=== PATIENT | female | born 1980 | race Two or more races ===

== ENCOUNTER 2020-05-04 15:45 | Outpatient (REF) | payer BC, SELFPAY ==
[2020-05-09 21:21] LABS: HPV mRNA E6/E7 rflx Not Detected (Not Detected)
== END 2020-05-04 15:46 | disposition home or self-care (01) ==
LOC: HO.LAB 15:45
PROVIDERS: Visit Provider Obstetrics & Gynecology
DX: Z01.419 Encounter for gynecological examination (general) (routine) without abnormal findings (principal)
CPT/HCPCS: 87624; 87625; 88142

== ENCOUNTER → 2020-05-08 07:58 | Outpatient (REF) | payer BC, OTHER, SELFPAY ==
--- NOTE | 2020-05-08 | NM_ITS ---
Exercise Myocardial perfusion study Indication: Abnormal treadmill stress test evaluate for myocardial ischemia Technique: The patient was brought in for an exercise perfusion study on 05/08/2020. Patient performed exercise as per Marco protocol and was injected 25 mCi of sestamibi was given intravenously one target HR was achieved. Images were obtained using the SPECT gamma camera interlaced with the gating device. Images were obtained in supine position. Resting perfusion study was performed on 05/09/2020. Patient was administered 25 mCi of sestamibi intravenously at rest. Images were then obtained in supine position. Images obtained with and without CT attenuation. Total DLP 72 MGY-CM. Images were processed with the software and compared side to side in short axis, horizontal long axis and vertical long axis views. Findings: The stress perfusion study showed non attenuated images show mildly reduced uptake in the anterior wall of the LV myocardium. Remainder of the LV myocardium is normally perfused. Attenuation corrected images show minimal thinning of the distal anterior wall of the LV myocardium. The gated study shows normal LV systolic function with calculated LVEF of greater than 70 %. LV cavity is normal in size. The gated study shows normal systolic wall thickening and contraction of all segments. There is no transient ischemic dilation. Resting study was suboptimal due to intense subdiaphragmatic uptake especially non attenuated images but shows normal uptake on non attenuated images.]. Attenuation corrected images show diffuse reduced uptake in the entire myocardium. Gating at rest reveals normal systolic wall motion with ejection fraction at 67%. The findings are consistent with likely normal myocardial. NM/NM gretchen perf SPECT rest & str Impression: 1. Likely normal myocardial perfusion 2. Gated LVEF is greater than 70% 3. Transient ischemic dilatation not present Stress EKG is equivocal for ischemia
--- NOTE | 2020-05-08 08:05 | CA_ITS ---
Acquisition Time: 2020-05-08 09:18:18 Total Exercise Time: 00:06:40 Test Indications: Abnormal ECG Medications: LISINOPRIL MAGNESIUM NAPROXEN CYCLOBENZAPRINE Protocol: RUI Max HR: 166 BPM 93% of Pred: 178 BPM Max BP: 156/070 mmHG Max Work Load: 8.0 METS Exercise stress nuclear using Rui protocol. Total of 6 min 40 sec. METS 8, THR up to 93 %. Pt tolerated well, denies any anginal sx. EKG without arrhythmias. T wave inversions 2 min 16 sec into recovery in leads 2,3 and in aVF anf V3-V6, however pt is asymptomatic. Nuclear images to follow. Normotensibe response to exercise. Test reviewed with Dr. Kim Referred By: Beverley Silveira Overread By: Nesha Camp
== END ==
LOC: HO.CARD 07:58
PROVIDERS: PCP Family Medicine; Visit Provider Physician Assistant Medical
DX: R94.39 Abnormal result of other cardiovascular function study (principal)
CPT/HCPCS: 78452; 93017; A9500

== ENCOUNTER 2020-06-27 16:46 | Outpatient (REF) | payer BC, SELFPAY ==
--- NOTE | 2020-06-27 | XR_ITS ---
EXAMINATION: XR KNEE, RIGHT CLINICAL INFORMATION: Pain COMPARISON: None TECHNIQUE: Four views of the right knee. FINDINGS: Bone alignment is normal. No fracture or dislocation is seen. There is a sclerotic density in the medial proximal tibial metaphysis measuring approximately 5 x 10 mm. This is nonspecific but may represent a bone island. Joint spaces are normal. There is no joint effusion. XR/XR knee RT 4V IMPRESSION: 5 x 10 mm sclerotic density in the medial tibial metaphysis. This is a nonspecific finding but may represent a benign bone island. Otherwise unremarkable exam.
== END 2020-06-27 16:47 | disposition home or self-care (01) ==
LOC: HO.XRAY 16:46
PROVIDERS: PCP Family Medicine; Visit Provider Nurse Practitioner Family
DX: M25.561 Pain in right knee (principal)
CPT/HCPCS: 73564

== ENCOUNTER 2020-11-09 08:38 | Outpatient (REF) | payer BC, SELFPAY ==
--- NOTE | ~2020-11-09 | MM_ITS ---
EXAMINATION: MM SCREENING DIGITAL BREAST TOMOSYNTHESIS, BILATERAL CLINICAL INFORMATION: Screening. Asymptomatic. Age 40. No prior breast imaging. No known family history of breast cancer. The lifetime risk of breast cancer based on the Tyrer-Cuzick Model is 9%. COMPARISON: None (current study represents initial baseline exam). TECHNIQUE: Digital breast tomosynthesis is performed in both the craniocaudal and mediolateral oblique views along with computer-aided detection (CAD). Synthesized 2D images are generated from the tomosynthesis. FINDINGS: There are scattered areas of fibroglandular density (ACR BI-RADS breast composition Category b). There are no significant masses, abnormal calcifications, or other abnormalities. The axilla and skin contours are unremarkable. MM/MM tomosynthesis screening BI IMPRESSION: No mammographic evidence of malignancy. ASSESSMENT: BI-RADS 1: Negative RECOMMENDATION: Routine annual mammography screening. This patient's information was entered into a reminder system with a target due date for their next mammogram.
== END 2020-11-09 08:39 | disposition home or self-care (01) ==
LOC: HO.MAMMO 08:38
PROVIDERS: Visit Provider Obstetrics & Gynecology
DX: Z12.31 Encounter for screening mammogram for malignant neoplasm of breast (principal)
CPT/HCPCS: 77063; 77067

== ENCOUNTER 2021-09-25 09:10 | Outpatient (REF) | payer BC, SELFPAY ==
[2021-09-27 17:01] LABS: HPV mRNA E6/E7 rflx Not Detected (Not Detected)
== END 2021-09-25 09:11 | disposition home or self-care (01) ==
LOC: HO.LAB 09:10
PROVIDERS: PCP Family Medicine; Visit Provider Obstetrics & Gynecology
DX: Z01.419 Encounter for gynecological examination (general) (routine) without abnormal findings (principal); Z11.51 Encounter for screening for human papillomavirus (HPV)
CPT/HCPCS: 87624; 88142

== ENCOUNTER 2021-11-12 16:03 | Outpatient (REF) | payer BC, SELFPAY ==
--- NOTE | ~2021-11-12 | MM_ITS ---
EXAMINATION: MM SCREENING DIGITAL BREAST TOMOSYNTHESIS, BILATERAL CLINICAL INFORMATION: Screening. Asymptomatic. The lifetime risk of breast cancer based on the Tyrer-Cuzick Model is 8%. COMPARISON: Mammography: 11/09/2020 (baseline) TECHNIQUE: Digital breast tomosynthesis is performed in both the craniocaudal and mediolateral oblique views along with computer-aided detection (CAD). Synthesized 2D images are generated from the tomosynthesis. FINDINGS: There are scattered areas of fibroglandular density (ACR BI-RADS breast composition Category b). Parenchymal pattern is similar to prior baseline exam. Minor asymmetries are stable. There are no significant masses, abnormal calcifications, or other abnormalities. The axilla and skin contours are unremarkable. MM/MM tomosynthesis screening BI IMPRESSION: No mammographic evidence of malignancy. ASSESSMENT: BI-RADS 1: Negative RECOMMENDATION: Routine annual mammography screening. This patient's information was entered into a reminder system with a target due date for their next mammogram.
== END 2021-11-12 16:04 | disposition home or self-care (01) ==
LOC: HO.MAMMO 16:03
PROVIDERS: PCP Family Medicine; Visit Provider Obstetrics & Gynecology
DX: Z12.31 Encounter for screening mammogram for malignant neoplasm of breast (principal)
CPT/HCPCS: 77063; 77067

== ENCOUNTER 2022-07-24 00:31 | Emergency (ER) | payer OTHER, SELFPAY ==
[2022-07-24 00:33] VITALS: BP 146/94; PULSE 83; RESP 18; TEMP 36.2; O2SAT 99; BMI 28.7
--- NOTE | 2022-07-24 00:45 | ED.FEMALEGU ---
HPI - Female Genitourinary General Chief complaint: Urogenital-Female Stated complaint: UTI Time Seen by Provider: 07/24/22 00:41 Source: patient Mode of arrival: ambulatory Limitations: no limitations History of Present Illness HPI Narrative: Patient is a healthy complaining of dysuria frequency burning sensation for last 2 days with back pain no nausea no vomiting no fever or chills no abdominal pain slight suprapubic discomfort no vaginal discharge Related Data Home Medications Medication Instructions Recorded Confirmed lisinopril 10 mg tablet 10 mg PO DAILY 05/04/20 magnesium 200 mg tablet 400 mg PO DAILY 05/04/20 Previous Rx's Medication Instructions Recorded cefuroxime axetil 250 mg tablet 250 mg PO BID 7 days #14 tabs 07/24/22 phenazopyridine 200 mg tablet 200 mg PO TID 2 days #6 tabs 07/24/22 (Pyridium) Allergies Allergy/AdvReac Type Severity Reaction Status Date / Time No Known Allergies Allergy Verified 09/25/21 09:43 [No Known Allergies*] Review of Systems Review of Systems: Yes all other systems are reviewed and are negative FOR[facility]LY [facility] Past Medical History Medical History Dysplasia of cervix, low grade (CAMPBELL 1) HTN (hypertension) Social History Social History Alcohol intake: never Advance Directives: No Advance Directives Information Provided: No Sexual orientation: Straight/Heterosexual Gender identity: Female Physical Exam Vital Signs: Vital Signs: Last Vital Signs Temp 97.2 F 07/24/22 00:33 Pulse 83 07/24/22 00:33 Resp 18 07/24/22 00:33 BP 146/94 H 07/24/22 00:33 Pulse Ox 99 07/24/22 00:33 O2 Del Method 07/24/22 00:33 BMI result Body Mass Index 28.7 Appearance: Alert. Oriented X3. No acute distress. ENT: Pharynx normal. Oral Mucosa moist Neck: Normal inspection. Neck supple. CVS: Normal heart rate and rhythm. Pulses normal. Respiratory: No respiratory distress. Equal air entry bilateral, no wheezing/rales/rhonchi Abdomen: Soft and nontender. Bowel sounds are present, no mass palpable, no CVA tenderness Skin: Skin warm and dry. Normal skin color. Normal skin turgor. Extremities: No lower extremity edema. No calf tenderness Neuro: Oriented X 3. No motor deficit. Medications Administered Discontinued Medications Generic Name Dose Route Start Last Admin Trade Name Melvina PRN Reason Stop Dose Admin Cefuroxime Axetil 250 mg 07/24/22 00:50 07/24/22 01:00 Cefuroxime Axetil 250 Mg Tablet PO 07/24/22 00:51 250 mg ONCE ONE Administration Phenazopyridine HCl 200 mg 07/24/22 00:50 07/24/22 01:00 Phenazopyridine Hcl 200 Mg Tablet PO 07/24/22 00:51 200 mg ONCE ONE Administration Tramadol HCl 50 mg 07/24/22 00:50 07/24/22 01:00 Tramadol Hcl 50 Mg Tablet PO 07/24/22 00:51 50 mg ONCE ONE Administration Medical Decision Making Medical Decision Making [facility] [place] Narrative: Patient with uncomplicated UTI will treat outpatient antibiotic treatment Ceftin and Pyridium Lab Data [facility] [place] Lab Attestation statement: I reviewed the patient's lab results. Labs: Lab Results 07/24/22 Range/Units 00:50 Urine Color Yellow Urine Appearance Clear Urine pH 6.0 (5.0-9.0) Ur Specific [place] <= 1.005 (1.005-1.025) Urine Protein Negative (Neg-Trace) mg/dL Urine Glucose (UA) Negative (Negative) mg/dL Urine Ketones Negative (Negative) mg/dL Urine Blood Moderate (2+) H (Negative) Urine Nitrite Negative (Negative) Ur Leukocyte Esterase Large (3+) H (Negative) Urine RBC 0-2 (0-2) /HPF Urine WBC 21-50 (0-5) /HPF Ur Squamous Epith Cells 0-2 (0-2) /HPF Urine Bacteria None Seen (None Seen) Hyaline Casts 0-2 (0-2) /LPF Discharge Plan Discharge Clinical Impression: UTI (urinary tract infection) Patient Disposition: Home, Self-Care Instructions: Urinary Tract Infection in Women (ED) Additional Instructions: Drink plenty of fluids Antibiotics as prescribed Follow-up with your PCP if not better Report to the ER if increased flank pain/fever/vomiting Prescriptions: New cefuroxime axetil 250 mg tablet 250 mg PO BID 7 Days Qty: 14 0RF phenazopyridine [Pyridium] 200 mg tablet 200 mg PO TID 2 Days Qty: 6 0RF No Action lisinopril 10 mg tablet 10 mg PO DAILY magnesium 200 mg tablet 400 mg PO DAILY Stand Alone Forms: Work/School Release Interventions: ED Discharge Assessment Last Done: 07/24/22 01:39 Discharge Date/Time: 07/24/22 01:39
[2022-07-24] MEDS: traMADoL HCL 50 MG TABLET PO (01:00)
[2022-07-24] MEDS: Phenazopyridine HCL 200 MG TABLET PO (01:00)
[2022-07-24 01:04] LABS: Appearance Urine Clear; Color Urine Yellow; Glucose Urine UA Negative (Negative); Leukocyte Esterase Urine Large (3+) (Negative); Nitrite Urine Negative (Negative); Specific Gravity - Urine <= 1.005 (1.005-1.025); UMIC TRIGGER UACC YES; Urine Blood Moderate (2+) (Negative); Urine Ketones Negative (Negative); Urine Protein Negative (Neg-Trace)
[2022-07-24 01:11] LABS: Bacteria Urine None Seen (None Seen); Hyaline Casts Urine 0-2 /LPF (0-2); RBC Urine 0-2 /HPF (0-2); Squamous Epithelial Cell Urine 0-2 /HPF (0-2); UACC Culture Trigger YES; WBC Urine 21-50 /HPF (0-5)
== END 2022-07-24 01:39 | disposition home or self-care (01) ==
PROVIDERS: Emergency Provider Internal Medicine
DX: N39.0 Urinary tract infection, site not specified (principal); Z79.899 Other long term (current) drug therapy
CPT/HCPCS: 81001; 81003; 87086; 87088; 87186; 99283; 99284

== ENCOUNTER 2022-08-23 12:15 | Outpatient (REF) | payer OTHER, SELFPAY ==
[2022-08-23 13:41] LABS: Hematocrit 38.8 % (37.0-47.0); Mean Corpuscular HGB Conc 33.5 g/dl (31.0-35.0); Mean Corpuscular Hemoglobin 30.3 pg (27.0-33.0); Mean Corpuscular Volume 90.4 fL (80.0-98.0); Mean Platelet Volume 9.7 fL (9.4-12.3); Platelet Count 311 X10*3/uL (160-400); Red Blood Count 4.29 X10*6/uL (4.20-5.50); Red Cell Distribution Width 12.2 % (11.0-16.0); White Blood Count 5.7 X10*3/uL (4.8-10.8)
[2022-08-23 14:16] LABS: Alanine Aminotransferase 14 U/L (0-31); Albumin Level 3.9 g/dL (3.5-5.0); Alkaline Phosphatase 43 U/L (39-117); Anion Gap 16 (12-20); Aspartate Amino Transferase 12 U/L (5-31); Bilirubin Total 0.6 mg/dL (0.0-1.0); Blood Urea Nitrogen 13 mg/dL (9-16); Calcium 9.1 mg/dL (8.4-10.2); Carbon Dioxide 22 mmol/L (22-29); Chloride 107 mmol/L (96-108); Cholesterol 209 mg/dL; Estimated Glomerular Filt Rate > 60; Glucose Fasting 92 mg/dL (60-99); HDL Cholesterol 42 mg/dL; LDL Cholesterol Calculated 148 mg/dl; Potassium 4.5 mmol/L (3.3-5.1); Sodium 140 mmol/L (135-145); Total Protein 6.6 g/dL (6.5-8.0); Triglycerides 97 mg/dL
[2022-08-23 14:32] LABS: TSH reflex Free T4 0.81 uIU/mL (0.32-4.0); Vitamin D 25-OH Total 24.3 ng/mL (>30)
== END 2022-08-23 12:16 | disposition home or self-care (01) ==
LOC: HO.LAB 12:15
PROVIDERS: PCP Nurse Practitioner Family; Visit Provider Nurse Practitioner Family
DX: Z00.00 Encounter for general adult medical examination without abnormal findings (principal); E55.9 Vitamin D deficiency, unspecified
CPT/HCPCS: 36415; 80053; 80061; 82306; 83735; 84443; 85027

== ENCOUNTER → 2022-10-23 11:53 | Outpatient (BNVA) | payer OTHER, SELFPAY | PROVIDERS: PCP Nurse Practitioner Family; Visit Provider Obstetrics & Gynecology | DX: Z13.89 Encounter for screening for other disorder (principal) ==

== ENCOUNTER 2022-11-19 09:50 | Outpatient (REF) | payer OTHER, SELFPAY ==
--- NOTE | ~2022-11-19 | MM_ITS ---
EXAMINATION: MM SCREENING DIGITAL BREAST TOMOSYNTHESIS, BILATERAL CLINICAL INFORMATION: Screening. Asymptomatic. The lifetime risk of breast cancer based on the Tyrer-Cuzick Model is 8%. COMPARISON: Mammography: 11/12/2021, 11/09/2020 (baseline) TECHNIQUE: Digital breast tomosynthesis is performed in both the craniocaudal and mediolateral oblique views along with computer-aided detection (CAD). Synthesized 2D images are generated from the tomosynthesis. FINDINGS: There are scattered areas of fibroglandular density (ACR BI-RADS breast composition Category b). There are no significant masses, abnormal calcifications, or other abnormalities. No architectural abnormality or developing density or significant change from prior studies. The axilla and skin contours are unremarkable. No significant changes from prior exams. MM/MM tomosynthesis screening BI IMPRESSION: No mammographic evidence of malignancy. ASSESSMENT: BI-RADS 1: Negative RECOMMENDATION: Routine annual mammography screening. This patient's information was entered into a reminder system with a target due date for their next mammogram.
== END 2022-11-19 09:51 | disposition home or self-care (01) ==
LOC: HO.MAMMO 09:50
PROVIDERS: PCP Nurse Practitioner Family; Referring Provider Obstetrics & Gynecology; Visit Provider Nurse Practitioner Family
DX: Z12.31 Encounter for screening mammogram for malignant neoplasm of breast (principal)
CPT/HCPCS: 77063; 77067

== ENCOUNTER 2023-06-05 15:07 | Outpatient (AMB) | payer OTHER, SELFPAY ==
--- NOTE | 2023-06-05 15:15 | A.OFFPC_ITS ---
Vital Signs 06/05/23 15:16 Height 5 ft 6 in Weight 176 lb BMI 28.4 BP 130/76 Blood Pressure Location Rt brachial Position Sitting Respiration 13 Pulse 87 Pulse Source Pulse Oximeter Temp 97.7 F Temp Source Temporal Artery Scan Pulse Oximetry (%) 99 Oxygen Delivery Method Room Air Intake Visit Reasons: follow up bp med Intake Note: Patient states that insurance was giving her a hard time to get her bp meds due to it being a 30 day supply and not a 90 day supply, patient would like a refill on the lisinopril but with a 90 day supply. Patient would like to quickly discuss pain in her right leg if there is time. 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 She states that her former PCP did xray and MRI at the time without acute findings. She reports intermittent pain in the right knee which has recently been more frequent and interrupts her sleep at night. No tingling, numbness, or loss of sensation. No acute symptoms at this time. She has not been taking any medication for her symptoms. [facility] Medical History (Updated 06/05/23 @ 15:45 by Ange Barber CNP) Dysplasia of cervix, low grade (CAMPBELL 1) HTN (hypertension) Surgical History (Updated 06/05/23 @ 15:26 by Carmencita Roberson MA) No pertinent past surgical history Family History Mother HTN (hypertension) Maternal Grandfather Colon cancer Paternal Aunt Lung cancer Social History Household Members: Spouse Household Members Other:: son Housing: House Alcohol intake: never Patient Tobacco Use Status: Never used Tobacco e-Cigarette/Vaping Use: Never Used service: No Current occupational status: employed 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 Anderson Elizondo, Marjorie Palacio, Harish Rueda and colleagues, with an educational kristin from [employer]. Review of Systems Const Details: Const Denies chills, Denies fatigue, Denies fever(s), Denies headache(s) and Denies weakness ENT Denies dizziness and Denies headache(s) Card Denies chest pain, Denies lightheadedness, Denies dyspnea and Denies other (Palpitations) Resp Denies cough, Denies dyspnea, Denies wheezing and Denies other ( shortness of breath) GI Denies abdominal pain, Denies melena, Denies hematochezia, Denies change in bowel habits, Denies dyspepsia and Denies nausea Denies hematuria and Denies dysuria Musc Reports as per HPI Skin/Breast Denies rash, Denies unusual bruising and Denies wounds Neuro Denies abnormal gait, Denies dizziness, Denies headache(s), Denies memory loss, Denies numbness, Denies Sensory deficit (Neuro), Denies tingling and Denies weakness Psych Denies anxiety, Denies depression, Denies memory loss Endo Denies cold intolerance, Denies fatigue, Denies heat intolerance, Denies polydipsia and Denies polyuria Aller/Immun Denies wheezing Physical exam (Primary Care) Vital Signs: Last Vital Signs Temp 97.7 F 06/05/23 15:16 Pulse 87 06/05/23 15:16 Resp 13 06/05/23 15:16 BP 130/76 06/05/23 15:16 Pulse Ox 99 06/05/23 15:16 Oxygen Delivery Method Room Air 06/05/23 15:16 BMI result Body Mass Index 28.4 Tobacco/Smoking Status: Tobacco use Status Tobacco use date assessed 08/12/22 10/23/22 12:29 Patient Tobacco Use Status Never used Tobacco 10/23/22 12:29 e-Cigarette/Vaping Use Never Used 10/23/22 12:29 Thrive Assessment: Date of Thrive Assessment Date Thrive assessed 08/12/22 10/23/22 12:29 Const Other: General: no acute distress and well developed Nutritional Appearance: well nourished Orientation/consciousness: patient oriented x3 HENMT Head: Yes normocephalic and Yes atraumatic Eyes General: appearance normal, both eyes and all related structures Pupils: Equal, round and reactive pupils present EOM: EOMs intact bilaterally Resp Effort & Inspection: normal respiratory effort Auscultation: clear to auscultation bilaterally Cardio Rate: regular rate Rhythm: regular rhythm Heart sounds: S1 normal heart sound present, S2 normal heart sound present, no gallops, no murmurs and no rubs GI Palpation (GI): No Abdominal aortic bruit present, Soft to palpation, nontender, No hepatosplenomegaly present and No Rebound tenderness present Auscultation: normal bowel sounds General: Yes no CVA tenderness Back/Spine/Pelvis Back: no CVA tenderness Cervical Spine: cervical ROM normal and No Cervical spine tenderness Thoracic/Lumbar Spine: thoraco-lumbar ROM normal, No pain with thoraco-lumbar ROM, No thoracic spinal tenderness and No lumbar spinal tenderness Extrem General: Yes normal to inspection, No edema and No calf tenderness Normal ROM of the right knee, no edema, erythema, or overt signs of trauma Skin General: warm and dry. Normal skin color. Normal skin turgor Neuro General: patient oriented x3, gait normal and no focal neuro deficit Cranial nerves: Yes Equal, round and reactive pupils present Cognition (Neuro): normal cognition Gait exam (Neuro): Normal gait present Sensory Exam: No Sensory deficit (Neuro) Psych Appearance: grossly normal Affect: normal affect Attitude: cooperative Thought process: Normal thought process present Assessment and Plan Assessment & Plan (1) Essential (primary) hypertension: Code(s): I10 - Essential (primary) hypertension Plan: Blood pressure is 130/76, within goal of less than 140/90 Continue to take lisinopril as prescribed Low-sodium diet encouraged Will continue to monitor Follow-up in 2 months for an extended physical exam Return sooner with symptoms or concerns Verbalized understanding and agreed with treatment (2) Chronic pain of right knee: Code(s): M25.561 - Pain in right knee; G89.29 - Other chronic pain Plan: Reports chronic intermittent right knee pain from a nontraumatic injury 2 years ago Normal ROM of the right knee, no edema, erythema, or overt signs of trauma Naproxen ordered. Take as prescribed Warm/cold compresses encouraged Referred to physical therapy Advised to request MRI report from previous PCP sent to us Follow-up with worsening or new symptoms Verbalized understanding and agreed with treatment plan Orders: Orders PT Evaluation and Treatment Today G89.29 - Other chronic pain, M25.561 - Pain in right knee Medications: New naproxen 500 mg PO BID PRN 60 tabs 0RF pain Changed From lisinopril 10 mg PO DAILY 30 days 30 tabs 0RF To lisinopril 10 mg PO DAILY 90 days 90 tabs 1RF Coding Level of Care Code Est Pt Level 3 (92830) Diagnoses Essential (primary) hypertension I10 Chronic pain of right knee M25.561; G89.29
[2023-06-05 15:16] VITALS: BP 130/76; PULSE 87; RESP 13; TEMP 36.5; O2SAT 99; BMI 28.4
== END 2023-06-05 16:02 | disposition home or self-care (01) ==
PROVIDERS: PCP Nurse Practitioner Family; Visit Provider Nurse Practitioner Family
DX: I10 Essential (primary) hypertension (principal); M25.561 Pain in right knee; G89.29 Other chronic pain
CPT/HCPCS: 99213

== ENCOUNTER 2023-12-02 15:19 | Outpatient (AMB) | payer OTHER, SELFPAY ==
--- NOTE | 2023-12-02 15:23 | A.OFFVIS_ITS ---
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 Complaining of an episode of blood per stool 2 months Last Pap/HPV was negative in 10/12 Last Mammogram was BI-RADS 1 in 11/12 No previous screening colonoscopy PFSH Medical History Dysplasia of cervix, low grade (CAMPBELL 1) HTN (hypertension) Surgical History No pertinent past surgical history Family History Mother HTN (hypertension) Maternal Grandfather Colon cancer Paternal Aunt Lung cancer Social History Household Members: Spouse Household Members Other:: son Housing: House Alcohol intake: never Patient Tobacco Use Status: Never used Tobacco e-Cigarette/Vaping Use: Never Used service: No Current occupational status: employed 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 Sexual orientation: Straight/Heterosexual Gender identity: Female Cognitive needs: No Hearing needs: No Vision needs: No Female Reproductive History Menstrual Age of Menarche: 10 Duration of menses: 6-7 days Date of last menstrual period: 11/15/23 Total pregnancies: 1 Full term: 1 Number of Living Children: 1 Date of last pap smear: 09/26/21 Date of Mammogram: 11/19/22 Review of Systems Const All systems reviewed & are unremarkable except as noted in HPI and below Card Reports as per HPI Resp Reports as per HPI GI Reports as per HPI and Reports no additional complaints Reports as per HPI Physical Exam Vital Signs: Last Vital Signs BP 120/82 12/02/23 15:24 BMI result Body Mass Index 28.6 Const General: cooperative, healthy appearing and comfortable Chest Chest palpation & inspection: normal inspection of the chest and normal palpation of entire chest wall Breast/axilla inspection: normal inspection of the breasts and normal inspection of the axillae Breast/axilla palpation: normal palpation of the breasts, normal palpation of the axillae and no axillary lymphadenopathy Resp Effort & Inspection: normal respiratory effort Auscultation: clear to auscultation bilaterally Percussion: percussion normal Cardio Palpation: normal PMI Rate: regular rate Rhythm: regular rhythm Heart sounds: no murmurs and no rubs Peripheral pulses: Peripheral pulses 2+ throughout GI Inspection: Yes normal to inspection Palpation (GI): Soft to palpation, nontender, no guarding, not rigid and No hepatosplenomegaly present Percussion: Yes normal to percussion Auscultation: normal bowel sounds Rectal Exam - Female: deferred General: Yes bladder normal to palpation External Female Exam: No lesion Speculum Exam - Vagina: normal appearance of the vagina, normal palpation, normal vaginal discharge and not erythematous Speculum Exam - Cervix: normal appearance of the cervix and normal palpation Bimanual exam- vagina & uterus: normal bimanual exam, normal palpation, uterine size normal, bladder normal to palpation, consistency normal and normal palpation Bimanual Exam- Adnexa, other: normal adnexae, no masses and no tenderness Assessment & Plan Assessment & Plan (1) Well woman exam: Comment: History of CAMPBELL 1 persistent 2018 status post LEEP followed by negative co testing in 2018 and 2019 and negative co testing in 10/12 Code(s): Z01.419 - Encounter for gynecological examination (general) (routine) without abnormal findings Category: Medical Plan: Cotesting not indicated this year. Mammogram ordered. The patient was refer to GI for colonoscopy Counseled the patient about the recommended dietary allowance of 1000 mg of Calcium & 600 IU of vitamin D. The patient was instructed to perform monthly self-breast exams and to schedule an annual exam in a year; All questions answered and the patient verbalized understanding. Instructed the patient to schedule annual exam in a year (2) Hematochezia: Code(s): K92.1 - Melena Category: Medical Plan: Will refer to GI for colonoscopy Instructed the patient to call our office back in case a referral appointment is not scheduled, missed or canceled so that we will assist on rescheduling another appointment, the patient verbalized understanding agreed with the plan. Orders: Orders MM tomosynthesis screening BI Today Z12.31 - Encounter for screening mammogram for malignant neoplasm of breast Referrals Gastroenterology Referral K92.1 - Melena Coding Level of Care Code Est Pt Prev Care 40-64y(82050) Diagnoses Well woman exam Z01.419 Hematochezia K92.1
[2023-12-02 15:24] VITALS: BP 120/82; BMI 28.6
== END 2023-12-02 15:46 | disposition home or self-care (01) ==
LOC: HO.HWS 15:19
PROVIDERS: PCP Nurse Practitioner Family; Visit Provider Obstetrics & Gynecology
DX: Z01.419 Encounter for gynecological examination (general) (routine) without abnormal findings (principal); K92.1 Melena
CPT/HCPCS: 99396

== ENCOUNTER → 2023-12-02 15:19 | Outpatient (BNVA) | payer OTHER, SELFPAY | PROVIDERS: PCP Nurse Practitioner Family; Visit Provider Obstetrics & Gynecology | DX: Z01.419 Encounter for gynecological examination (general) (routine) without abnormal findings (principal); K92.1 Melena | CPT/HCPCS: 99396 ==

== ENCOUNTER 2023-12-17 15:45 | Outpatient (REF) | payer OTHER, SELFPAY ==
--- NOTE | ~2023-12-17 | MM_ITS ---
EXAMINATION: MM SCREENING DIGITAL BREAST TOMOSYNTHESIS, BILATERAL CLINICAL INFORMATION: Screening. Asymptomatic. COMPARISON: Mammography: This study is compared with prior exams dating back to 2020. TECHNIQUE: Digital breast tomosynthesis is performed in both the craniocaudal and mediolateral oblique views along with computer-aided detection (CAD). Synthesized 2D images are generated from the tomosynthesis. FINDINGS: The breasts are heterogeneously dense, which may obscure small masses (ACR BI-RADS breast composition Category c). There are no significant masses, abnormal calcifications, or other abnormalities. MM/MM tomosynthesis screening BI IMPRESSION: No mammographic evidence of malignancy. ASSESSMENT: BI-RADS BI-RADS 1 - Negative RECOMMENDATION: Routine annual mammography screening. 1 year F/U This examination should not preclude the clinical evaluation of a suspicious palpable abnormality. This patient's information was entered into a reminder system with a target due date for their next mammogram.
== END 2023-12-17 15:46 | disposition home or self-care (01) ==
LOC: HO.MAMMO 15:45
PROVIDERS: PCP Nurse Practitioner Family; Visit Provider Obstetrics & Gynecology
DX: Z12.31 Encounter for screening mammogram for malignant neoplasm of breast (principal)
CPT/HCPCS: 77063; 77067

== ENCOUNTER → 2023-12-17 15:45 | Outpatient (BNV) | payer OTHER, SELFPAY | PROVIDERS: PCP Nurse Practitioner Family; Visit Provider Radiology Diagnostic Radiology | DX: Z12.31 Encounter for screening mammogram for malignant neoplasm of breast (principal) | CPT/HCPCS: 77063; 77067 ==

== ENCOUNTER 2023-12-27 23:59 | Emergency (ER) | payer OTHER, SELFPAY ==
--- NOTE | 2023-12-28 | ECG_ITS ---
Test Reason : HIGH BP Blood Pressure : / mmHG Vent. Rate : 067 BPM Atrial Rate : 067 BPM P-R Int : 176 ms QRS Dur : 090 ms QT Int : 428 ms P-R-T Axes : 060 049 029 degrees QTc Int : 452 ms Normal sinus rhythm Normal ECG When compared with ECG of 19-JUN-2019 23:17, No significant change was found Referred By: Generic ED Physician Electronically Signed By:JOMAR LOERA
[2023-12-28 00:32] VITALS: BP 178/88; PULSE 70; RESP 16; TEMP 36.6; O2SAT 96; BMI 29.0
[2023-12-28 00:57] LABS: MANUAL DIFF FLAG NO
[2023-12-28 00:59] LABS: Basophils Absolute Auto 0.1 X10*3/uL (0.0-0.2); Basophils Percent Auto 0.8 % (0-2); Eosinophils Absolute Auto 0.2 X10*3/uL (0.0-0.4); Eosinophils Percent Auto 2.5 % (0-4); Hematocrit 38.1 % (37.0-47.0); Imm Gran Abs Auto 0.02 X10*3/uL (0.00-0.03); Imm Gran Pct Auto 0.2 % (0.0-0.4); Lymphocytes Absolute Auto 2.7 X10*3/uL (1.2-4.9); Lymphocytes Percent Auto 29.5 % (20-40); Mean Corpuscular HGB Conc 34.1 g/dl (31.0-35.0); Mean Corpuscular Hemoglobin 30.9 pg (27.0-33.0); Mean Corpuscular Volume 90.5 fL (80.0-98.0); Monocytes Absolute Auto 0.7 X10*3/uL (0.1-1.2); Monocytes Percent Auto 7.9 % (2-11); Neutrophils Absolute Auto 5.5 x10*3/uL (2.0-8.3); Neutrophils Percent Auto 59.1 % (45-73); Platelet Count 334 X10*3/uL (160-400); Red Blood Count 4.21 X10*6/uL (4.20-5.50); Red Cell Distribution Width 12.2 % (11.0-16.0); White Blood Count 9.2 X10*3/uL (4.8-10.8)
[2023-12-28 01:12] LABS: Alanine Aminotransferase 16 U/L (0-31); Albumin Level 4.2 g/dL (3.5-5.0); Alkaline Phosphatase 50 U/L (39-117); Anion Gap 12 (12-20); Aspartate Amino Transferase 12 U/L (5-31); Bilirubin Direct 0.1 mg/dL (0.0-0.5); Bilirubin Total 0.4 mg/dL (0.0-1.0); Blood Urea Nitrogen 14 mg/dL (9-16); Calcium 9.2 mg/dL (8.4-10.2); Carbon Dioxide 27 mmol/L (22-29); Chloride 105 mmol/L (96-108); Creatinine Clr Calc Pharmacy 85.9; Estimated Glomerular Filt Rate > 60; Glucose Random 92 mg/dL (60-115); Lipase 25 U/L (8-78); Sodium 140 mmol/L (135-145); Total Protein 7.1 g/dL (6.5-8.0)
[2023-12-28 01:20] LABS: Troponin-I High Sensitivity < 2.7 ng/L (<3.5-17.0)
[2023-12-28 03:39] VITALS: BP 154/88; PULSE 76; RESP 18; TEMP 36.5; O2SAT 99
--- NOTE | 2023-12-28 05:07 | ED.GENADULT ---
HPI - General Adult General Chief complaint: General Medical Stated complaint: blood pressure check , at home it was high Time Seen by Provider: 12/28/23 05:07 History of Present Illness ED Provider: Delmi BOLANOS narrative: The patient is a 43-year-old woman who is on 10 mg of lisinopril for hypertension. She says that she checked her blood pressure a few days ago and it was high at around 106/107. She has felt moderately unwell over the last few days and she has checked her blood pressure is a few times and it has been similarly high. 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 She then had to go to a 2nd job. Tonight she felt unwell with palpitations and possibly some abdominal discomfort and ultimately decided to come to the emergency room for evaluation. After checking into the emergency room her abdominal discomfort resolved. Related Data Home Medications ?Medication ?Instructions ?Recorded ?Confirmed magnesium 200 mg tablet 400 mg PO DAILY 05/04/20 10/07/22 Previous Rx's ?Medication ?Instructions ?Recorded cholecalciferol (vitamin D3) 25 25 mcg PO DAILY 90 days #90 tabs 12/11/23 mcg (1,000 unit) tablet lisinopril 10 mg tablet 10 mg PO DAILY 90 days #90 tabs 12/11/23 Allergies Allergy/AdvReac Type Severity Reaction Status Date / Time No Known Allergies Allergy Verified 12/28/23 00:36 [No Known Allergies*] Review of Systems Review of Systems: Yes all other systems are reviewed and are negative [facility] Past Medical History Medical History Dysplasia of cervix, low grade (CAMPBELL 1) HTN (hypertension) Surgical History No pertinent past surgical history Family History Family History Mother HTN (hypertension) Maternal Grandfather Colon cancer Paternal Aunt Lung cancer Social History Social History Household Members: Spouse Household Members Other:: son Housing: House Alcohol intake: never Patient Tobacco Use Status: Never used Tobacco e-Cigarette/Vaping Use: Never Used Advance Directives: No Advance Directives Information Provided: No Do you have a plan to hurt others: No Plan service: No Current occupational status: employed 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 HENMT Other: Face is symmetrical. Mucous membranes moist. Eyes Other: Pupils are round equal, conjunctivae are clear, extraocular movements intact Neck Other: No JVD Resp Effort & Inspection: normal respiratory effort Auscultation: clear to auscultation bilaterally Cardio Rate: regular rate Rhythm: regular rhythm Heart sounds: S1 normal heart sound present and S2 normal heart sound present Skin Other: Skin is dry and unremarkable Neuro Other: The patient is awake and alert and normally oriented. Mental status is normal. Cranial nerves 2-12 are grossly intact. She moves her extremities normally and appropriately. She seems neurologically intact Extrem Other: No peripheral edema Medical Decision Making Medical Decision Making MDM Narrative: The patient is a 43-year-old woman who comes to the emergency room because she was concerned about high blood pressure readings at home. She does not have any specific symptoms associated with these high blood pressure readings aside from a general sense of not feeling well. Her initial blood pressure was elevated at 178/88. She was observed. She had an EKG and labs done that were unremarkable. Her blood pressure came down spontaneously. At 1 point her blood pressure was 127/88. This was just before my final interaction with her. While I spoke to her her blood pressure went up to about 160/90 but then came down to 137/87. I do not feel she is having a hypertensive urgency or emergency. However she is demonstrating that she is having labile blood pressures. I think she may be discharged to follow up with the regular doctor to discuss her ongoing hypertension management. Lab Data 12/28/23 00:53 12/28/23 00:53 Labs: Lab Results 12/28/23 Range/Units 00:53 WBC 9.2 (4.8-10.8) X10*3/uL RBC 4.21 (4.20-5.50) X10*6/uL Hgb 13.0 (12.0-16.0) g/dl Hct 38.1 (37.0-47.0) % MCV 90.5 (80.0-98.0) fL MCH 30.9 (27.0-33.0) pg MCHC 34.1 (31.0-35.0) g/dl RDW 12.2 (11.0-16.0) % Plt Count 334 (160-400) X10*3/uL MPV 9.0 L (9.4-12.3) fL Immature Gran % (Auto) 0.2 (0.0-0.4) % Neut % (Auto) 59.1 (45-73) % Lymph % (Auto) 29.5 (20-40) % [place] % (Auto) 7.9 (2-11) % Eos % (Auto) 2.5 (0-4) % Baso % (Auto) 0.8 (0-2) % Lymph # (Auto) 2.7 (1.2-4.9) X10*3/uL [place] # (Auto) 0.7 (0.1-1.2) X10*3/uL Eos # (Auto) 0.2 (0.0-0.4) X10*3/uL Baso # (Auto) 0.1 (0.0-0.2) X10*3/uL Abs Immat Gran (auto) 0.02 (0.00-0.03) X10*3/uL Absolute Neuts (auto) 5.5 (2.0-8.3) x10*3/uL Absolute Nucleated RBC 0.000 (0.0-0.012) X10*3/uL Nucleated RBC % (auto) 0.0 (0.0-0.2) /100WBC Sodium 140 (135-145) mmol/L Potassium 4.0 (3.3-5.1) mmol/L Chloride 105 (96-108) mmol/L Carbon Dioxide 27 (22-29) mmol/L Anion Gap 12 (12-20) BUN 14 (9-16) mg/dL Creatinine 0.89 (0.5-1.4) mg/dL Estim Creat Clear Calc 85.9 Estimated GFR > 60 Random Glucose 92 (60-115) mg/dL Calcium 9.2 (8.4-10.2) mg/dL Total Bilirubin 0.4 (0.0-1.0) mg/dL Direct Bilirubin 0.1 (0.0-0.5) mg/dL AST 12 (5-31) U/L ALT 16 (0-31) U/L Alkaline Phosphatase 50 (39-117) U/L Troponin I High Sens < 2.7 (<3.5-17.0) ng/L Total Protein 7.1 (6.5-8.0) g/dL Albumin 4.2 (3.5-5.0) g/dL Lipase 25 (8-78) U/L Independent Interpretation I performed an independent interpretation of an: EKG Interpretation: EKG at 00:54 shows normal sinus rhythm at 67 beats per minute. It is a normal EKG. Discharge Plan Discharge Clinical Impression: Hypertension Patient Disposition: Home, Self-Care Additional Instructions: Your testing in the emergency room today seems reassuring. Please continue your current dose of lisinopril. Please contact your regular doctor on Friday to arrange a prompt follow up visit to discuss your symptoms and your blood pressure. Return to the emergency room if you feel significantly worse. Prescriptions: No Action cholecalciferol (vitamin D3) 25 mcg (1,000 unit) tablet 25 mcg PO DAILY 90 Days Qty: 90 4RF lisinopril 10 mg tablet 10 mg PO DAILY 90 Days Qty: 90 1RF magnesium 200 mg tablet 400 mg PO DAILY Referrals: Ange Barber, COLLECTION SYSTEMS CONSULTANT [Primary Care Provider] - (High blood pressure readings) Stand Alone Forms: Work/School Release Interventions: ED Discharge Assessment Last Done: 12/28/23 05:51 Discharge Date/Time: 12/28/23 05:52 Print Language: Zimbabwean
[2023-12-28 05:47] VITALS: BP 137/87; PULSE 61; RESP 16; TEMP 36.7; O2SAT 98
[2023-12-28 05:51] VITALS: BP 137/87; PULSE 61; RESP 16; TEMP 36.7; O2SAT 98
== END 2023-12-28 05:52 | disposition home or self-care (01) ==
PROVIDERS: Emergency Provider Emergency Medicine; PCP Nurse Practitioner Family
DX: I10 Essential (primary) hypertension (principal); R00.2 Palpitations
CPT/HCPCS: 36415; 80048; 80076; 83690; 84484; 85025; 93005; 99283; 99284

== ENCOUNTER → 2023-12-28 00:54 | Outpatient (BNV) | payer OTHER, SELFPAY | PROVIDERS: Emergency Provider Emergency Medicine; PCP Nurse Practitioner Family; Visit Provider Internal Medicine | DX: I10 Essential (primary) hypertension (principal) | CPT/HCPCS: 93010 ==

== ENCOUNTER 2023-12-29 13:05 | Outpatient (AMB) | payer OTHER, SELFPAY ==
--- NOTE | 2023-12-29 13:08 | MHC.PC.OV ---
Vital Signs 12/29/23 13:16 Height 5 ft 6 in Weight 178 lb BMI 28.7 BP 122/70 Blood Pressure Location Lt brachial Position Sitting Respiration 12 Pulse 84 Pulse Source Pulse Oximeter Temp 97.7 F Temp Source Temporal Artery Scan Pulse Oximetry (%) 98 Oxygen Delivery Method Room Air Intake Visit Reasons: 12/27 [facility] [place] Intake Note: patient here for high blood pressure she was seen in the E.R at [facility] on friday for her blood pressure. 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 Required: No Is last menstrual period known: Yes Last menstrual period: 12/16/23 Allergies No Known Allergies [No Known Allergies*] Allergy (Verified 12/29/23 13:41) Medication List - Last Reconciled 12/29/23 by Ange Barber CNP cholecalciferol (vitamin D3) 25 mcg PO DAILY 90 days lisinopril 10 mg PO DAILY 90 days magnesium 400 mg PO DAILY Tobacco use date assessed: 06/05/23 Dental Screening Dental Screen Date: 12/29/23 Did you have a dental visit in the last 12 months?: No Did you have a dental problem in the last 6 months where you did not have access to dental care?: No Was dental information given to patient?: Patient has dentist HPI HPI Comments History of Present Illness Details 43-year-old female presents for hospital discharge follow-up for hypertension follow-up. Her last office visit was in 05/2023. She did not follow-up as planned for an extended physical exam. She was evaluated for hypertension at [facility] ED on 12/27/2022. Her chief complaints were elevated home blood pressure readings with her automatic blood pressure machine, feeling unwell, palpitations, and abdominal discomfort. Labs and EKG were unremarkable. Blood pressure was initially elevated but spontaneously improved. She was advised to continue to take lisinopril 10 mg daily and discharged home with instructions to follow-up with her PCP. She admits to taking lisinopril as prescribed without adverse reactions. She notes that she has not been watchful with sodium in her diet. She states that her recent symptoms and elevated blood pressure readings may be attributed to work-related stressors. She works two jobs with significant stressors on the first. She offers no complaints and denies acute symptoms at this time. 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 How often do you have a drink containing alcohol?: Never Total Score: 0 ROMEO-7 AMB Questionnaire ROMEO-7 Date ROMEO - 7 assessed: 08/12/22 Source: Developed by Drs. Anderson Elizondo, Marjorie Palacio, Harish Rueda and colleagues, with an educational kristin from [employer]. Review of Systems Const Details: Const Denies chills, Denies fatigue, Denies fever(s), Denies headache(s) and Denies weakness ENT Denies dizziness and Denies headache(s) Card Denies chest pain, Denies lightheadedness, Denies dyspnea and Denies other (Palpitations) Resp Denies cough, Denies dyspnea, Denies wheezing and Denies other ( shortness of breath) GI Denies abdominal pain, Denies melena, Denies hematochezia, Denies change in bowel habits, Denies dyspepsia and Denies nausea Denies hematuria and Denies dysuria Musc Denies abnormal gait, Denies myalgias, Denies arthralgias, Denies numbness and Denies tingling Skin/Breast Denies rash, Denies unusual bruising and Denies wounds Neuro Denies abnormal gait, Denies dizziness, Denies headache(s), Denies memory loss, Denies numbness, Denies Sensory deficit (Neuro), Denies tingling and Denies weakness Psych Denies anxiety, Denies depression, Denies memory loss Endo Denies cold intolerance, Denies fatigue, Denies heat intolerance, Denies polydipsia and Denies polyuria Aller/Immun Denies wheezing Physical exam (Primary Care) Vital Signs: Last Vital Signs Temp 97.7 F 12/29/23 13:16 Pulse 84 12/29/23 13:16 Resp 12 12/29/23 13:16 BP 122/70 12/29/23 13:16 Pulse Ox 98 12/29/23 13:16 Oxygen Delivery Method Room Air 12/29/23 13:16 BMI result Body Mass Index 28.7 Tobacco/Smoking Status: Tobacco use Status Tobacco use date assessed 06/05/23 12/29/23 13:10 Patient Tobacco Use Status Never used Tobacco 12/29/23 13:10 e-Cigarette/Vaping Use Never Used 12/29/23 13:10 Thrive Assessment: Date of Thrive Assessment Date Thrive assessed 08/12/22 12/29/23 13:10 Const Other: General: no acute distress and well developed Nutritional Appearance: well nourished Orientation/consciousness: patient oriented x3 HENMT Head: Yes normocephalic and Yes atraumatic Eyes General: appearance normal, both eyes and all related structures Pupils: Equal, round and reactive pupils present EOM: EOMs intact bilaterally Resp Effort & Inspection: normal respiratory effort Auscultation: clear to auscultation bilaterally Cardio Rate: regular rate Rhythm: regular rhythm Heart sounds: S1 normal heart sound present, S2 normal heart sound present, no gallops, no murmurs and no rubs GI Palpation (GI): No Abdominal aortic bruit present, Soft to palpation, nontender, No hepatosplenomegaly present and No Rebound tenderness present Auscultation: normal bowel sounds General: Yes no CVA tenderness Back/Spine/Pelvis Back: no CVA tenderness Cervical Spine: cervical ROM normal and No Cervical spine tenderness Thoracic/Lumbar Spine: thoraco-lumbar ROM normal, No pain with thoraco-lumbar ROM, No thoracic spinal tenderness and No lumbar spinal tenderness Extrem General: Yes normal to inspection, No edema and No calf tenderness Skin General: warm and dry. Normal skin color. Normal skin turgor Neuro General: patient oriented x3, gait normal and no focal neuro deficit Cranial nerves: Yes Equal, round and reactive pupils present Cognition (Neuro): normal cognition Gait exam (Neuro): Normal gait present Sensory Exam: No Sensory deficit (Neuro) Psych Appearance: grossly normal Affect: normal affect Attitude: cooperative Thought process: Normal thought process present Assessment and Plan Assessment & Plan (1) Essential (primary) hypertension: Code(s): I10 - Essential (primary) hypertension Plan: Blood pressure today is 122/70, within goal of less than 140/90 Continue current treatment regimen Low-sodium diet encouraged Follow-up in 1 month for hypertension and an extended physical exam Return with symptoms or concerns Verbalized understanding and agreed with the treatment plan (2) Stress at work: Code(s): Z56.6 - Other physical and mental strain related to work Plan: Instructed on measures to improve stress Routine exercise encouraged Follow-up with worsening or new symptoms Verbalized understanding and agreed with the treatment plan Orders: Orders UA CC w/rflx Micro + Cult Today Z00.00 - Encounter for general adult medical examination without abnormal findings Vitamin D 25-OH Total Today E55.9 - Vitamin D deficiency, unspecified Lipid Panel Today Z00.00 - Encounter for general adult medical examination without abnormal findings TSH reflex Free T4 Today Z00.00 - Encounter for general adult medical examination without abnormal findings Coding Level of Care Code Est Pt Level 4 (40857) Complex EM visit Add On G2211 Diagnoses Essential (primary) hypertension I10 Stress at work Z56.6
[2023-12-29 13:16] VITALS: BP 122/70; PULSE 84; RESP 12; TEMP 36.5; O2SAT 98; BMI 28.7
== END 2023-12-29 13:57 | disposition home or self-care (01) ==
PROVIDERS: PCP Nurse Practitioner Family; Visit Provider Nurse Practitioner Family
DX: I10 Essential (primary) hypertension (principal); Z56.6 Other physical and mental strain related to work
CPT/HCPCS: 99214; G2211

== ENCOUNTER 2024-01-26 12:01 | Outpatient (REF) | payer OTHER, SELFPAY ==
[2024-01-26 12:56] LABS: Appearance Urine Clear; Color Urine Yellow; Glucose Urine UA Negative (Negative); Leukocyte Esterase Urine Negative (Negative); Nitrite Urine Negative (Negative); Specific Gravity - Urine 1.025 (1.005-1.025); Urine Blood Negative (Negative); Urine Ketones Trace mg/dL (Negative); Urine Protein Negative (Neg-Trace)
[2024-01-26 13:49] LABS: Cholesterol 176 mg/dL (<200); HDL Cholesterol 41 mg/dL (>40); LDL Cholesterol Calculated 122 mg/dL (<100); Triglycerides 69 mg/dL (<150)
[2024-01-26 13:58] LABS: TSH reflex Free T4 0.92 uIU/mL (0.32-4.0); Vitamin D 25-OH Total 36.6 ng/mL (>30)
== END 2024-01-26 12:02 | disposition home or self-care (01) ==
LOC: HO.LAB 12:01
PROVIDERS: PCP Nurse Practitioner Family; Visit Provider Nurse Practitioner Family
DX: Z00.00 Encounter for general adult medical examination without abnormal findings (principal); E55.9 Vitamin D deficiency, unspecified
CPT/HCPCS: 36415; 80061; 81003; 82306; 84443

== ENCOUNTER 2024-02-02 12:33 | Outpatient (AMB) | payer OTHER, SELFPAY ==
--- NOTE | 2024-02-02 12:35 | MHC.PC.OV ---
Vital Signs 02/02/24 12:44 Height 5 ft 6 in Weight 177 lb 6 oz BMI 28.6 BP 124/72 Blood Pressure Location Lt brachial Position Sitting Respiration 16 Pulse 83 Pulse Source Pulse Oximeter Temp 98.3 F Temp Source Oral Pulse Oximetry (%) 98 Oxygen Delivery Method Room Air Intake Visit Reasons: 1 mos CPE, HTN Intake Note: patient here for CPE and follow up on HTN. 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 Engineer Required: No Is last menstrual period known: Yes Last menstrual period: 01/15/24 Post menopausal: No Patient : No Allergies No Known Allergies [No Known Allergies*] Allergy (Verified 02/02/24 12:46) Medication List - Last Reconciled 02/02/24 by Ange Barber CNP cholecalciferol (vitamin D3) 25 mcg PO DAILY 90 days lisinopril 10 mg PO DAILY 90 days magnesium 400 mg PO DAILY Tobacco use date assessed: 02/02/24 Dental Screening Dental Screen Date: 02/02/24 Did you have a dental visit in the last 12 months?: No Did you have a dental problem in the last 6 months where you did not have access to dental care?: No Was dental information given to patient?: Patient has dentist HPI HPI Comments History of Present Illness Details 44-year-old female presents for an extended physical exam and hypertension follow-up She has past medical history significant for hypertension She admits to taking her medications as prescribed without adverse reactions She reports intermittent pain in the right knee with clicking sounds, with bending, for the past 2 years. She was referred to physical therapy. However, she notes that she was contacted by physical therapy but declined it. She brought an MRI results of her right knee from 2020 She also reports fungal infection of the right toenails and requests treatment Last mammogram was on 12/17/2023: negative Pap smear 09/2021 Nonsmoker. Does not drink alcohol. No recreational drugs [facility] Medical History Dysplasia of cervix, low grade (CAMPBELL 1) HTN (hypertension) Surgical History No pertinent past surgical history Family History (Updated 02/02/24 @ 12:43 by Stacie Porter) Mother HTN (hypertension) Maternal Grandfather Colon cancer Paternal Aunt Lung cancer Maternal Uncle Alcohol abuse Social History Household Members: Spouse Household Members Other:: son Housing: House Alcohol intake: never Patient Tobacco Use Status: Never used Tobacco e-Cigarette/Vaping Use: Never Used Second Hand Smoke Exposure: Yes service: No Current occupational status: employed 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 1. Little interest or pleasure in doing things: not at all 2. Feeling down, depressed, or hopeless: not at all 3. Trouble falling or staying asleep, or sleeping too much: not at all 4. Feeling tired or having little energy: several days 5. Poor appetite or overeating: not at all 6. Feeling bad about yourself - or that you are a failure or have let yourself or your family down: not at all 7. Trouble concentrating on things, such as reading the newspaper or watching television: not at all 8. Moving or speaking so slowly that other people could have noticed. Or the opposite - being so fidgety or restless that you have been moving around a lot more than usual: not at all 9. Thoughts that you would be better off or of hurting yourself in some way: not at all Total score: 1 Depression Screening Interpretation: Negative Depression Screening Done: Yes 07300 - PHQ-9 Billing: Yes Source: Developed by Drs. Anderson Elizondo, Marjorie Palacio, Harish Rueda and colleagues, with an educational kristni from [employer]. Thrive Questionnaire Date Thrive assessed: 02/02/24 I am a: Patient What is your living situation today?: I have a steady place to live Within the past 12 months, did the food you bought not last and you didn't have the money to get more?: Never true Within the past 12 months, did you worry whether your food would run out before you got money to buy more?: Never true Do you have trouble paying for medicines?: No Do you have trouble getting transportation to medical appointments?: No Do you have trouble paying your heating and electricity bill?: No Do you have trouble taking care of your child, family member or friend?: No Do you have trouble with day-to-day activities such as bathing, preparing meals, shopping, managing finances, etc.?: No Are you currently unemployed and looking for a job?: No Are you interested in more education?: No Please select the resources that you would like help with: None Currently or been in a relationship where the following occur: No concerns reported THRIVE Score: 0 AUDIT C Alcohol Use Questionnaire (AUDIT-C) 1. How often do you have a drink containing alcohol?: Never Total Score: 0 ROMEO-7 AMB Questionnaire ROMEO-7 Date ROMEO - 7 assessed: 02/02/24 Feeling nervous, anxious, or on edge: 0 = Not at all Not being able to stop or control worryin = Not at all Worrying too much about different things: 0 = Not at all Trouble relaxin = Not at all Being so restless that it is hard to sit still: 0 = Not at all Becoming easily annoyed or irritable: 0 = Not at all Feeling afraid as if something awful might happen: 0 = Not at all Total ROMEO-7 score (0-4 normal; 5-9 mild; 10-14 moderate; 15-21 severe): 0 Source: Developed by Drs. Anderson Elizondo, Marjorie Palacio, Harish Rueda and colleagues, with an educational kristin from [employer]. ROMEO-7 Assessment Billing ROMEO-7 Assessment Tool: ROMEO-7 Assessment 68634 Review of Systems Const Details: Denies chills, Denies fatigue, Denies fever(s), Denies headache(s) and Denies weakness HEENT Denies change in vision, Denies dizziness, Denies headache(s), Denies hearing loss, Denies nasal congestion, Denies sinus pain, Denies sinus pressure and Denies sore throat Card Denies chest pain, Denies lightheadedness, Denies dyspnea and Denies other (palpitations) Resp Denies cough, Denies dyspnea and Denies wheezing GI Denies abdominal pain, Denies melena, Denies hematochezia, Denies change in bowel habits, Denies dyspepsia and Denies nausea Denies hematuria and Denies dysuria Musc Denies abnormal gait, Denies numbness and Denies tingling Skin/Breast Denies rash, Denies unusual bruising and Denies wounds Neuro Denies abnormal gait, Denies dizziness, Denies headache(s), Denies memory loss, Denies numbness, Denies Sensory deficit (Neuro), Denies tingling and Denies weakness Psych Denies anxiety, Denies depression and Denies memory loss Endo Denies cold intolerance, Denies fatigue, Denies heat intolerance, Denies polydipsia and Denies polyuria Sachin/Lymph Denies easy bleeding and Denies easy bruising Aller/Immun Denies wheezing Physical exam (Primary Care) Tobacco/Smoking Status: Tobacco use Status Tobacco use date assessed 06/05/23 02/02/24 12:37 Patient Tobacco Use Status Never used Tobacco 02/02/24 12:37 e-Cigarette/Vaping Use Never Used 02/02/24 12:37 Depression Screening Interpretation: Negative Thrive Assessment: Date of Thrive Assessment Date Thrive assessed 08/12/22 02/02/24 12:37 Currently or been in a relationship where the following occur: No concerns reported Const Other: General: no acute distress, well developed, alert and awake Nutritional Appearance: well nourished Orientation/consciousness: patient oriented x3 HENMT Head: Yes normocephalic and Yes atraumatic Ears: hearing grossly normal bilaterally and TM's normal bilaterally General nose exam: Normal external nose present and Normal nares present Mouth: Normal oral and palatal mucosa present and moist mucous membranes Teeth and gingiva: dentition normal Throat: Yes oropharynx normal Eyes Pupils: Equal, round and reactive pupils present and Pupil accommodation reflex normal EOM: EOMs intact bilaterally Neck Neck: Yes normal visual inspection, Yes no lymphadenopathy and Yes trachea midline Thyroid: Thyroid normal Carotids: no bruits Lymphatic: no lymphadenopathy noted Chest Chest palpation & inspection: normal inspection of the chest Resp Effort & Inspection: normal respiratory effort Auscultation: clear to auscultation bilaterally Cardio Rate: regular rate Rhythm: regular rhythm Heart sounds: S1 normal heart sound present, S2 normal heart sound present, no gallops, no murmurs and no rubs Bruits: no abdominal aortic bruits and no carotid bruits GI Palpation (GI): No Abdominal aortic bruit present, Soft to palpation, nontender, No hepatosplenomegaly present and No Rebound tenderness present Auscultation: normal bowel sounds General: Yes no CVA tenderness Back/Spine/Pelvis Back: no CVA tenderness Cervical Spine: cervical ROM normal and No Cervical spine tenderness Thoracic/Lumbar Spine: thoraco-lumbar ROM normal, No pain with thoraco-lumbar ROM, No thoracic spinal tenderness and No lumbar spinal tenderness Skin General: warm and dry. Normal skin color. Normal skin turgor Lesions: no lesions Rashes: no rashes Trauma: no lacerations or abrasions Wounds: no wounds Nails: Brown discoloration and thickening of the toenails of the right foot; consistent with onychomycosis Neuro General: patient oriented x3, gait normal and CN's II-XI intact bilaterally Cranial nerves: Yes Equal, round and reactive pupils present Cognition (Neuro): normal cognition Gait exam (Neuro): Normal gait present Motor exam (neuro): 5/5 motor strength present throughout Sensory Exam: No Sensory deficit (Neuro) Deep tendon reflexes (DTR's): Right patellar reflex intensity grade: 2+ and Left patellar reflex intensity grade: 2+ Extrem General: Yes normal to inspection, No edema and No calf tenderness Psych Appearance: grossly normal Affect: normal affect Attitude: cooperative Thought process: Normal thought process present Assessment and Plan Assessment & Plan (1) Physical exam, annual: Code(s): Z00.00 - Encounter for general adult medical examination without abnormal findings Plan: No significant physical restrictions or limitations noted Continue current treatment regimen Healthy diet and routine exercise encouraged Recent lab results reviewed with the patient; unremarkable findings Advised to schedule an appointment with her dentist for routine dental care Follow-up in 6 weeks for onychomycosis or sooner with symptoms or concerns Verbalized understanding and agreed with the treatment plan (2) Essential (primary) hypertension: Code(s): I10 - Essential (primary) hypertension Plan: Blood pressure is 124/72, within goal of less than 140/90 Continue current treatment regimen Low-sodium diet encouraged Will continue to monitor Verbalized understanding and agreed with the treatment plan (3) Onychomycosis: Code(s): B35.1 - Tinea unguium Plan: Brown discoloration and thickening of the toenails of the right foot; consistent with onychomycosis Terbinafine ordered. Take as prescribed Advised to get fasting lipid panel blood work done a few days before next visit Follow-up in 6 weeks Verbalized understanding and agreed with the treatment plan (4) Chronic pain of right knee: Code(s): M25.561 - Pain in right knee; G89.29 - Other chronic pain Plan: Reports intermittent pain in the right knee with clicking sounds, with bending, for the past 2 years No overt injury or trauma noted Normal ROM of the right knee Declined physical therapy several months ago Encouraged to try physical therapy. May referred to Ortho as needed Physical therapy referral made May take Tylenol ibuprofen for pain or discomfort Follow-up with symptoms or concerns Verbalized understanding and agreed with the treatment plan Orders: Orders PT Evaluation and Treatment Today G89.29 - Other chronic pain, M25.561 - Pain in right knee Liver Panel 6 Weeks B35.1 - Tinea unguium Medications: New terbinafine HCl 250 mg PO DAILY 30 days 30 tabs 0RF Coding Level of Care Code Est Pt Level 4 (66783) Est Pt Prev Care 40-64y(33956) Diagnoses Physical exam, annual Z00.00 Essential (primary) hypertension I10 Onychomycosis B35.1 Chronic pain of right knee M25.561; G89.29 Additional Codes ROMEO-7 Assessment Billing - ROMEO-7 Assessment Tool: ROMEO-7 Assessment 78431 ([id number])
[2024-02-02 12:44] VITALS: BP 124/72; PULSE 83; RESP 16; TEMP 36.8; O2SAT 98; BMI 28.6
== END 2024-02-02 13:11 | disposition home or self-care (01) ==
PROVIDERS: PCP Nurse Practitioner Family; Visit Provider Nurse Practitioner Family
DX: Z00.00 Encounter for general adult medical examination without abnormal findings (principal); B35.1 Tinea unguium; M25.561 Pain in right knee; I10 Essential (primary) hypertension; G89.29 Other chronic pain
CPT/HCPCS: 99214; 99396

== ENCOUNTER 2024-02-16 15:28 | Outpatient (AMB) | payer OTHER, SELFPAY ==
--- NOTE | 2024-02-16 15:40 | A.OFFVIS_ITS ---
Vital Signs 02/16/24 15:55 Height 5 ft 6 in Weight 174 lb BMI 28.1 BP 121/61 Blood Pressure Location Lt brachial Position Sitting Pulse 79 Intake Visit Reasons: melena Allergies No Known Allergies [No Known Allergies*] Allergy (Verified 03/22/24 11:35) HPI Comments Details: 44 y.o F with PMH of HTN who is here for rectal bleeding. Reports a single episode of rectal bleeding on September 21 of this year. Reports was on her period that day but is sure that she had rectal and not vaginal bleeding that she wiped on TP. Stool itself was brown. Does have baseline constipation but doesnt remember if she was straining. No fam hx of crc in [place]. Not sure about pat grandfather. 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 Sexual orientation: Straight/Heterosexual Gender identity: Female Cognitive needs: No Hearing needs: No Vision needs: No Female Reproductive History Menstrual Age of Menarche: 10 Review of Systems Const All systems reviewed & are unremarkable except as noted in HPI and below Physical Exam Vital Signs: Last Vital Signs Pulse 79 02/16/24 15:55 BP 121/61 02/16/24 15:55 BMI result Body Mass Index 28.1 Gen appear: NAD, well nourished HEENT: no icterus, no cervical lymphadenopathy Chest: clear to auscultation CVS: Regular S1/S2 Abd: soft, nontender, nondistended Ext: no peripheral edema Neuro: A/Ox3, noted to move all extremities spontaneously Assessment & Plan Assessment & Plan (1) Hematochezia: Code(s): K92.1 - Melena Category: Medical Plan Likely from hemorrhoids, but will schedule for a colo as age >[address] Plan: - PEG prep Rxed - instructions reviewed - Follow up after colo as needed Medications: New peg 3350-electrolytes 236-22.74-6.74 -5.86 gram (Golytely) as per split prep instructions, until fecal effluent is clear 240 mL PO Q10M 4,000 mL 0RF colonoscopy Coding Level of Care Code New Pt Level 3 (81446) Diagnoses Hematochezia K92.1
[2024-02-16 15:55] VITALS: BP 121/61; PULSE 79; BMI 28.1
== END 2024-02-16 15:57 | disposition home or self-care (01) ==
PROVIDERS: PCP Nurse Practitioner Family; Visit Provider Internal Medicine
DX: K92.1 Melena (principal)
CPT/HCPCS: 99499

== ENCOUNTER → 2024-02-16 15:28 | Outpatient (BNVA) | payer OTHER, SELFPAY | PROVIDERS: PCP Nurse Practitioner Family; Visit Provider Internal Medicine ==

== ENCOUNTER 2024-03-17 15:00 | Outpatient (RCR) | payer OTHER, SELFPAY ==
--- NOTE | 2024-02-26 15:55 | MHC.PT.EP ---
[facility] [place] Office [place] Office [place] Office [address] Makayla Gonzalez [address] [phone] F: [phone] F: [phone] F: [phone] F: [phone] Physical Therapy Plan of Care Date of Evaluation: 02/26/24 Date of Surgery: Diagnosis: chronic RIGHT knee pain (MD Dx) RIGHT knee patellofemoral pain syndrome (PT Dx) Assessment: Patient is a pleasant 44 y.o. female who is referred to PT by Dr. Ange Barber MD, with Dx of Chronic RIGHT knee pain. Her PT diagnosis is patellofemoral pain syndrome. She presents with pain, limited ROM R knee, weakness R hip and knee. Patient current functional limitations are uncomfortable sleeping, bending/squatting to flower picker objects, prolonged standing and walking. Patient will benefit from skilled PT to address aforementioned impairments and functional limitations to meet established goals. Frequency and Duration: The patient will be seen 1x/week for 4 weeks Short Term Goals: 2 weeks Patient demonstrates consistency and independence with HEP to self manage symptoms. 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 Treatment Plan: Modalities to reduce pain, spasms and effusion. Manual therapy to restore motion and function. Therapeutic exercise to improve strength and flexibility. Neuromuscular re-education for posture and balance. Therapeutic activities to return to functional activities of daily living. Electronically signed by: Philippe Medrano, PT, DPT Please sign and return to therapist. Thank you for your referral.
--- NOTE | 2024-03-17 16:14 | MHC.PT.DC ---
[facility] [place] Office [place] Office [place] Office [address] Makayla Gonzalez [address] [facility] [phone] F: [phone] F: [phone] F: [phone] F: [phone] Physical Therapy Discharge Report Diagnosis: chronic RIGHT knee pain (MD Dx) RIGHT knee patellofemoral pain syndrome (PT Dx) Date of Surgery: Date of Evaluation: 02/26/24 Date of Discharge: 03/17/24 Treatments to Date: 4 Cancellations to Date: No Shows to Date: Discharge Status: Achieved Goals Improved Function Independent with HEP Discharge Summary: Hui presents without pain during exercises, just muscle fatigue. Since she has shown improvement without pain for the past couple of sessions she agrees to discharge from PT today. She presents with full ROM and strength in her knee. She has an independent HEP. Electronically signed by: Philippe Medrano, PT, DPT Please sign and return to therapist. Thank you for your referral.
== END 2024-03-17 16:14 | disposition home or self-care (01) ==
LOC: HO.PT 15:00
PROVIDERS: PCP Nurse Practitioner Family
DX: M25.561 Pain in right knee (principal); G89.29 Other chronic pain
CPT/HCPCS: 97110; 97112; 97161; 97530

== ENCOUNTER 2024-03-19 12:22 | Outpatient (REF) | payer OTHER, SELFPAY ==
[2024-03-19 13:34] LABS: Alanine Aminotransferase 12 U/L (0-31); Albumin Level 3.9 g/dL (3.5-5.0); Alkaline Phosphatase 51 U/L (39-117); Aspartate Amino Transferase 10 U/L (5-31); Bilirubin Direct 0.1 mg/dL (0.0-0.5); Bilirubin Total 0.3 mg/dL (0.0-1.0); Total Protein 6.8 g/dL (6.5-8.0)
== END 2024-03-19 12:23 | disposition home or self-care (01) ==
LOC: HO.LAB 12:22
PROVIDERS: PCP Nurse Practitioner Family; Visit Provider Nurse Practitioner Family
DX: B35.1 Tinea unguium (principal)
CPT/HCPCS: 36415; 80076

== ENCOUNTER 2024-03-22 11:19 | Outpatient (AMB) | payer OTHER, SELFPAY ==
--- NOTE | 2024-03-22 11:23 | MHC.PC.OV ---
Vital Signs 03/22/24 11:29 Height 5 ft 6 in Weight 178 lb 2 oz BMI 28.7 BP 114/70 Blood Pressure Location Lt brachial Position Sitting Respiration 16 Pulse 80 Pulse Source Pulse Oximeter Temp 98.1 F Temp Source Oral Pulse Oximetry (%) 97 Oxygen Delivery Method Room Air Intake Visit Reasons: 6 wks onychomycosis Intake Note: patient here for 6 wks follow up on onychomycosis. 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 Is last menstrual period known: Yes Last menstrual period: 03/15/24 Post menopausal: No Allergies No Known Allergies [No Known Allergies*] Allergy (Verified 03/22/24 11:35) Medication List - Last Reconciled 03/22/24 by Ange Barber CNP cholecalciferol (vitamin D3) 25 mcg PO DAILY 90 days lisinopril 10 mg PO DAILY 90 days magnesium 400 mg PO DAILY peg 3350-electrolytes 236-22.74-6.74 -5.86 gram (Golytely) 240 mL PO Q10M Tobacco use date assessed: 03/22/24 Dental Screening Dental Screen Date: 03/22/24 Did you have a dental visit in the last 12 months?: No Did you have a dental problem in the last 6 months where you did not have access to dental care?: No Was dental information given to patient?: Patient has dentist HPI HPI Comments History of Present Illness Details 44-year-old female presents for onychomycosis (right toenails) follow-up She admits to taking her medications as prescribed without adverse reactions She took terbinafine daily for month; the prescription ran out 2 weeks ago. She has not noticed any changes to her toenails She denies acute symptoms at this time [facility], [facility] Medical History Dysplasia of cervix, low grade (CAMPBELL 1) HTN (hypertension) Surgical History No pertinent past surgical history Family History Mother HTN (hypertension) Maternal Grandfather Colon cancer Paternal Aunt Lung cancer Maternal Uncle Alcohol abuse Social History Household Members: Spouse Household Members Other:: son Housing: House Alcohol intake: never Patient Tobacco Use Status: Never used Tobacco e-Cigarette/Vaping Use: Never Used Second Hand Smoke Exposure: Yes service: No Current occupational status: employed Current occupation: [employer] Sexual orientation: Straight/Heterosexual Gender identity: Female Cognitive needs: No Hearing needs: No Vision needs: No Female Reproductive History Menstrual Age of Menarche: 10 Date of last menstrual period: 03/15/24 Questionnaire Thrive Questionnaire Date Thrive assessed: 02/02/24 ROMEO-7 AMB Questionnaire ROMEO-7 Date ROMEO - 7 assessed: 02/02/24 Source: Developed by Drs. Anderson Elizondo, Marjorie Palacio, Harish Rueda and colleagues, with an educational kristin from [employer]. Review of Systems Const Details: Const Denies chills, Denies fatigue, Denies fever(s), Denies headache(s) and Denies weakness ENT Denies dizziness and Denies headache(s) Card Denies chest pain, Denies lightheadedness, Denies dyspnea and Denies other (Palpitations) Resp Denies cough, Denies dyspnea, Denies wheezing and Denies other ( shortness of breath) GI Denies abdominal pain, Denies melena, Denies hematochezia, Denies change in bowel habits, Denies dyspepsia and Denies nausea Denies hematuria and Denies dysuria Musc Denies abnormal gait, Denies myalgias, Denies arthralgias, Denies numbness and Denies tingling Skin/Breast Denies rash, Denies unusual bruising and Denies wounds Neuro Denies abnormal gait, Denies dizziness, Denies headache(s), Denies memory loss, Denies numbness, Denies Sensory deficit (Neuro), Denies tingling and Denies weakness Endo Denies cold intolerance, Denies fatigue, Denies heat intolerance, Denies polydipsia and Denies polyuria Aller/Immun Denies wheezing Physical exam (Primary Care) Tobacco/Smoking Status: Tobacco use Status Tobacco use date assessed 02/02/24 03/22/24 11:24 Patient Tobacco Use Status Never used Tobacco 03/22/24 11:24 e-Cigarette/Vaping Use Never Used 03/22/24 11:24 Thrive Assessment: Date of Thrive Assessment Date Thrive assessed 02/02/24 03/22/24 11:24 Const Other: General: no acute distress and well developed Nutritional Appearance: well nourished Orientation/consciousness: patient oriented x3 [facility] Head: Yes normocephalic and Yes atraumatic Eyes General: appearance normal, both eyes and all related structures Pupils: Equal, round and reactive pupils present EOM: EOMs intact bilaterally Resp Effort & Inspection: normal respiratory effort Auscultation: clear to auscultation bilaterally Cardio Rate: regular rate Rhythm: regular rhythm Heart sounds: S1 normal heart sound present, S2 normal heart sound present, no gallops, no murmurs and no rubs GI Palpation (GI): No Abdominal aortic bruit present, Soft to palpation, nontender, No hepatosplenomegaly present and No Rebound tenderness present Auscultation: normal bowel sounds General: Yes no CVA tenderness Back/Spine/Pelvis Back: no CVA tenderness Cervical Spine: cervical ROM normal and No Cervical spine tenderness Thoracic/Lumbar Spine: thoraco-lumbar ROM normal, No pain with thoraco-lumbar ROM, No thoracic spinal tenderness and No lumbar spinal tenderness Extrem General: Yes normal to inspection, No edema and No calf tenderness Skin General: warm and dry. Normal skin color. Normal skin turgor Lesions: no lesions Rashes: no rashes Trauma: no lacerations or abrasions Wounds: no wounds Nails: Brown discoloration and thickening of the toenails of the right foot; consistent with onychomycosis Neuro General: patient oriented x3, gait normal and no focal neuro deficit Cranial nerves: Yes Equal, round and reactive pupils present Cognition (Neuro): normal cognition Gait exam (Neuro): Normal gait present Sensory Exam: No Sensory deficit (Neuro) Psych Appearance: grossly normal Affect: normal affect Attitude: cooperative Thought process: Normal thought process present Assessment and Plan Assessment & Plan (1) Onychomycosis: Code(s): B35.1 - Tinea unguium Plan: Brown discoloration and thickening of the toenails of the right foot; consistent with onychomycosis Recent liver panel is unremarkable Will refill terbinafine 250 mg daily for 60 days. Advised to take as prescribed Follow-up in 2 months or sooner with symptoms or concerns Verbalized understanding and agreed with the plan (2) Essential (primary) hypertension: Code(s): I10 - Essential (primary) hypertension Plan: Blood pressure is 114/70, within goal of less than 140/90 Continue current treatment regimen Low-sodium diet encouraged Will continue to monitor Verbalized understanding and agreed with the plan Medications: Refilled lisinopril 10 mg PO DAILY 90 days 90 tabs 1RF terbinafine HCl 250 mg PO DAILY 30 days 30 tabs 1RF Coding Level of Care Code Est Pt Level 3 (26459) Diagnoses Onychomycosis B35.1 Essential (primary) hypertension I10
[2024-03-22 11:29] VITALS: BP 114/70; PULSE 80; RESP 16; TEMP 36.7; O2SAT 97; BMI 28.7
== END 2024-03-22 11:51 | disposition home or self-care (01) ==
PROVIDERS: PCP Nurse Practitioner Family; Visit Provider Nurse Practitioner Family
DX: B35.1 Tinea unguium (principal); I10 Essential (primary) hypertension

== ENCOUNTER → 2024-03-22 11:19 | Outpatient (BNVA) | payer OTHER, SELFPAY | PROVIDERS: PCP Nurse Practitioner Family; Visit Provider Nurse Practitioner Family | DX: B35.1 Tinea unguium (principal); I10 Essential (primary) hypertension | CPT/HCPCS: 99212 ==

== ENCOUNTER 2024-06-28 15:34 | Outpatient (AMB) | payer OTHER, SELFPAY ==
--- NOTE | 2024-06-28 15:35 | MHC.PC.OV ---
Vital Signs 06/28/24 15:40 Height 5 ft 6 in Weight 177 lb 6 oz BMI 28.6 BP 132/72 Blood Pressure Location Rt brachial Position Sitting Respiration 16 Pulse 78 Pulse Source Pulse Oximeter Temp 98.0 F Temp Source Oral Pulse Oximetry (%) 99 Oxygen Delivery Method Room Air Intake Visit Reasons: Med. 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 Is last menstrual period known: Yes Last menstrual period: 06/09/24 Post menopausal: No Patient : No Allergies No Known Allergies [No Known Allergies*] Allergy (Verified 06/28/24 15:46) Medication List - Last Reconciled 06/28/24 by Ange Barber CNP cholecalciferol (vitamin D3) 25 mcg PO DAILY 90 days lisinopril 10 mg PO DAILY 90 days magnesium 400 mg PO DAILY peg 3350-electrolytes 236-22.74-6.74 -5.86 gram (Golytely) 240 mL PO Q10M terbinafine HCl 250 mg PO DAILY 30 days Tobacco use date assessed: 06/28/24 Dental Screening Dental Screen Date: 06/28/24 Did you have a dental visit in the last 12 months?: No Did you have a dental problem in the last 6 months where you did not have access to dental care?: No Was dental information given to patient?: Patient has dentist HPI HPI Comments History of Present Illness Details 44-year-old female presents for onychomycosis and hypertension follow-up. She admits to taking her medications as prescribed without adverse reactions. She notes that fungal infection of her right toenails of almost completely resolved. She offers no complaints and denies acute symptoms at this time. 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 1. Little interest or pleasure in doing things: not at all 2. Feeling down, depressed, or hopeless: not at all 3. Trouble falling or staying asleep, or sleeping too much: not at all 4. Feeling tired or having little energy: not at all 5. Poor appetite or overeating: not at all 6. Feeling bad about yourself - or that you are a failure or have let yourself or your family down: not at all 7. Trouble concentrating on things, such as reading the newspaper or watching television: not at all 8. Moving or speaking so slowly that other people could have noticed. Or the opposite - being so fidgety or restless that you have been moving around a lot more than usual: not at all 9. Thoughts that you would be better off or of hurting yourself in some way: not at all Total score: 0 Depression Screening Interpretation: Negative Depression Screening Done: Yes Source: Developed by Drs. Anderson Elizondo, Marjorie Palacio, Harish Rueda and colleagues, with an educational kristin from [employer]. Thrive Questionnaire Date Thrive assessed: 02/02/24 I am a: Patient What is your living situation today?: I have a steady place to live Within the past 12 months, did the food you bought not last and you didn't have the money to get more?: Never true Within the past 12 months, did you worry whether your food would run out before you got money to buy more?: Never true Do you have trouble paying for medicines?: No Do you have trouble getting transportation to medical appointments?: No Do you have trouble paying your heating and electricity bill?: No Do you have trouble taking care of your child, family member or friend?: No Do you have trouble with day-to-day activities such as bathing, preparing meals, shopping, managing finances, etc.?: No Are you currently unemployed and looking for a job?: No Are you interested in more education?: No Please select the resources that you would like help with: None Currently or been in a relationship where the following occur: No concerns reported THRIVE Score: 0 AUDIT C Alcohol Use Questionnaire (AUDIT-C) 1. How often do you have a drink containing alcohol?: Never Total Score: 0 ROMEO-7 AMB Questionnaire ROMEO-7 Date ROMEO - 7 assessed: 02/02/24 Feeling nervous, anxious, or on edge: 0 = Not at all Not being able to stop or control worryin = Not at all Worrying too much about different things: 0 = Not at all Trouble relaxin = Not at all Being so restless that it is hard to sit still: 0 = Not at all Becoming easily annoyed or irritable: 0 = Not at all Feeling afraid as if something awful might happen: 0 = Not at all Total ROMEO-7 score (0-4 normal; 5-9 mild; 10-14 moderate; 15-21 severe): 0 Source: Developed by Drs. Anderson Elizondo, Marjorie Palacio, Harish Rueda and colleagues, with an educational kristin from [employer]. Review of Systems Const Details: Const Denies chills, Denies fatigue, Denies fever(s), Denies headache(s) and Denies weakness ENT Denies dizziness and Denies headache(s) Card Denies chest pain, Denies lightheadedness, Denies dyspnea and Denies other (Palpitations) Resp Denies cough, Denies dyspnea, Denies wheezing and Denies other ( shortness of breath) GI Denies abdominal pain, Denies melena, Denies hematochezia, Denies change in bowel habits, Denies dyspepsia and Denies nausea Denies hematuria and Denies dysuria Musc Denies abnormal gait, Denies myalgias, Denies arthralgias, Denies numbness and Denies tingling Skin/Breast Denies rash, Denies unusual bruising and Denies wounds Neuro Denies abnormal gait, Denies dizziness, Denies headache(s), Denies memory loss, Denies numbness, Denies Sensory deficit (Neuro), Denies tingling and Denies weakness Psych Denies anxiety, Denies depression, Denies memory loss Endo Denies cold intolerance, Denies fatigue, Denies heat intolerance, Denies polydipsia and Denies polyuria Aller/Immun Denies wheezing Physical exam (Primary Care) Vital Signs: Last Vital Signs Temp 98.0 F 06/28/24 15:40 Pulse 78 06/28/24 15:40 Resp 16 06/28/24 15:40 BP 132/72 06/28/24 15:40 Pulse Ox 99 06/28/24 15:40 Oxygen Delivery Method Room Air 06/28/24 15:40 BMI result Body Mass Index 28.6 Tobacco/Smoking Status: Tobacco use Status Tobacco use date assessed 06/28/24 06/28/24 15:44 Patient Tobacco Use Status Never used Tobacco 06/28/24 15:37 e-Cigarette/Vaping Use Never Used 06/28/24 15:37 PHQ-9: PHQ-9 Score PHQ-9: Total score 0 06/28/24 15:47 Depression Screening Interpretation: Negative Thrive Assessment: Date of Thrive Assessment Date Thrive assessed 02/02/24 06/28/24 15:37 Currently or been in a relationship where the following occur: No concerns reported Const Other: General: no acute distress and well developed Nutritional Appearance: well nourished Orientation/consciousness: patient oriented x3 [facility] Head: Yes normocephalic and Yes atraumatic Eyes General: appearance normal, both eyes and all related structures Pupils: Equal, round and reactive pupils present EOM: EOMs intact bilaterally Resp Effort & Inspection: normal respiratory effort Auscultation: clear to auscultation bilaterally Cardio Rate: regular rate Rhythm: regular rhythm Heart sounds: S1 normal heart sound present, S2 normal heart sound present, no gallops, no murmurs and no rubs GI Palpation (GI): No Abdominal aortic bruit present, Soft to palpation, nontender, No hepatosplenomegaly present and No Rebound tenderness present Auscultation: normal bowel sounds General: Yes no CVA tenderness Back/Spine/Pelvis Back: no CVA tenderness Cervical Spine: cervical ROM normal and No Cervical spine tenderness Thoracic/Lumbar Spine: thoraco-lumbar ROM normal, No pain with thoraco-lumbar ROM, No thoracic spinal tenderness and No lumbar spinal tenderness Extrem General: Yes normal to inspection, No edema and No calf tenderness Skin General: warm and dry. Normal skin color. Normal skin turgor Lesions: no lesions Rashes: no rashes Trauma: no lacerations or abrasions Wounds: no wounds Nails: Fungal infection to right toenails with almost complete resolution; mild infection to the top of the nails Neuro General: patient oriented x3, gait normal and no focal neuro deficit Cranial nerves: Yes Equal, round and reactive pupils present Cognition (Neuro): normal cognition Gait exam (Neuro): Normal gait present Sensory Exam: No Sensory deficit (Neuro) Psych Appearance: grossly normal Affect: normal affect Attitude: cooperative Thought process: Normal thought process present Coding Level of Care Code Est Pt Level 3 (58470) Diagnoses Essential (primary) hypertension I10 Onychomycosis B35.1 Assessment & Plan Assessment & Plan (1) Essential (primary) hypertension: Code(s): I10 - Essential (primary) hypertension Category: Medical Plan: Blood pressure is 132/72, within goal of less than 140/90. Continue current treatment regimen. Low-sodium diet encouraged. Follow-up in 3 months for hypertension or sooner with symptoms or concerns. Verbalized understanding and agreed with treatment plan. (2) Onychomycosis: Code(s): B35.1 - Tinea unguium Category: Medical Plan: Fungal infection to right toenails with almost complete resolution; mild infection to the top of the nails and patient has been clipping the top of her nails which removes the affected portion. She completed 12 weeks of terbinafine treatment. She will follow-up as needed. Verbalized understanding and agreed with the plan. Medications: Discontinued terbinafine HCl Discontinued Reason: Patient no longer taking 250 mg PO DAILY 30 days 30 tabs 1RF
[2024-06-28 15:40] VITALS: BP 132/72; PULSE 78; RESP 16; TEMP 36.7; O2SAT 99; BMI 28.6
== END 2024-06-28 15:55 | disposition home or self-care (01) ==
PROVIDERS: PCP Nurse Practitioner Family; Visit Provider Nurse Practitioner Family
DX: I10 Essential (primary) hypertension (principal); B35.1 Tinea unguium

== ENCOUNTER → 2024-06-28 15:34 | Outpatient (BNVA) | payer OTHER, SELFPAY | PROVIDERS: PCP Nurse Practitioner Family; Visit Provider Nurse Practitioner Family | DX: I10 Essential (primary) hypertension (principal); B35.1 Tinea unguium | CPT/HCPCS: 99212 ==

== ENCOUNTER 2024-09-28 15:30 | Outpatient (REF) | payer OTHER, SELFPAY ==
[2024-09-28 18:35] LABS: Appearance Urine Clear; Color Urine Yellow; Glucose Urine UA Negative (Negative); Leukocyte Esterase Urine Negative (Negative); Nitrite Urine Negative (Negative); Specific Gravity - Urine 1.025 (1.005-1.025); Urine Blood Negative (Negative); Urine Ketones Negative (Negative); Urine Protein Negative (Neg-Trace)
--- OUTSIDE RECORDS SUMMARY | 2024-09-28 19:24 | XMS_ITS | Encounter Summary ---
Author Organization [employer] Address [address] [place] [address] 7 [place] [address] Care Team Providers Care Production Packager Name Role Phone Lisa Riggins MD Primary Care Provider [phone] Encounter Details Date Type Department Care Team (Latest Contact Info) Description 03/29/2022 Abstract [facility] CONVERSIONS Dental, Provider, DDS Social History Tobacco [...] on filedocumented in this encounter Care Teams Production Packager Relationship Specialty Start Date End Date Lisa Riggins MD [address] [place] [phone] PCP - General Family Medicine 06/23/18 documented as of this encounter
--- OUTSIDE RECORDS SUMMARY | 2024-09-28 19:24 | XMS_ITS | Encounter Summary ---
Author Organization [employer] Address [address] [place] [address] 7 [place] [address] Care Team Providers Care Skin Specialist Name Role Phone Lisa Riggins MD Primary Care Provider [phone] Encounter Details Date Type Department Care Team (Latest Contact Info) Description 07/03/2018 Abstract [facility] CONVERSIONS Dental, Provider, DDS Social History [...] on filedocumented in this encounter Care Teams Skin Specialist Relationship Specialty Start Date End Date Lisa Riggins MD [address] [place] [id number] PCP - General Family Medicine 06/23/18 documented as of this encounter
--- OUTSIDE RECORDS SUMMARY | 2024-09-28 19:24 | XMS_ITS | Encounter Summary ---
Author Organization [employer] Address [address] [place] [address] 7 [place] [address] Care Team Providers Care Electronics Commodity Manager Name Role Phone Lisa Riggins MD Primary Care Provider [phone] Encounter Details Date Type Department Care Team (Latest Contact Info) Description 07/06/2019 Abstract [facility] CONVERSIONS Dental, Provider, DDS Social History [...] on filedocumented in this encounter Care Teams Electronics Commodity Manager Relationship Specialty Start Date End Date Lisa Riggins MD [address] [place] [phone] PCP - General Family Medicine 06/23/18 documented as of this encounter
--- OUTSIDE RECORDS SUMMARY | 2024-09-28 19:24 | XMS_ITS | Encounter Summary ---
Author Organization [employer] Address [address] [place] [address] 7 [place] [address] Care Team Providers Care Medical Research Scientist Name Role Phone Lisa Riggins MD Primary Care Provider [phone] Encounter Details Date Type Department Care Team (Latest Contact Info) Description 11/03/2020 Abstract [facility] CONVERSIONS Dental, Provider, DDS Social History [...] on filedocumented in this encounter Care Teams Medical Research Scientist Relationship Specialty Start Date End Date Lisa Riggins MD [address] [place] [phone] PCP - General Family Medicine 06/23/18 documented as of this encounter
--- OUTSIDE RECORDS SUMMARY | 2024-09-28 19:24 | XMS_ITS | Clinical Summary ---
Author Organization [employer] Address [address] [facility] 7t [place] [address] Care Team Providers Care Nurse Anesthetist Name Role Phone Lisa Riggins MD Primary Care Provider [phone] Social History Tobacco Use Types Packs/Day Years [...] mRNA E6/E7 rflx Not Detected Not Detected [facility] Comment: Methodology: Road Freight Brake Coupler-Mediated Amplification This assay detects E6/E7 viral messenger RNA (mRNA) from 14 high-risk HPV types (16,18,31,33,35,39,45,51,52,56,58,59,66,68). The analytical performance characteristics of this assay have been determined by [employer]. The modifications have not been cleared or approved by the FDA. This assay has been validated pursuant to the CLIA regulations and is used for clinical purposes. For additional information, please refer to http://education.[employer]/faq/QZQ870g0 (This link if provided for information/ educational purposes only.) THIS TEST WAS PERFORMED AT: [facility] [address] [place] [address] [address] [place], [place] ??[phone] DEAN KAHN MD 09/25/2021 10:1 7 AM EDT us Troy Allison MD HISTORICAL/NON ORDERABLE LABS Fi nal Result [facility] [address] from Last 3 Months or Most Recently Relevant to Health Maintenance Care Teams Nurse Anesthetist Relationship Specialty Start Date End Date Lisa Riggins MD [address] [place] [id number] PCP - General Family Medicine 06/23/18
== END 2024-09-28 15:31 | disposition home or self-care (01) ==
LOC: HO.LNP 15:30
PROVIDERS: PCP Nurse Practitioner Family; Visit Provider Nurse Practitioner Family
DX: I10 Essential (primary) hypertension (principal); R10.9 Unspecified abdominal pain
CPT/HCPCS: 81003; 96127; 99212

== ENCOUNTER 2024-09-28 15:30 | Outpatient (AMB) | payer OTHER, SELFPAY ==
--- NOTE | 2024-09-28 15:47 | A.OFFPC_ITS ---
Vital Signs 09/28/24 15:52 Height 5 ft 6 in Weight 177 lb BMI 28.6 BP 116/76 Blood Pressure Location Rt brachial Position Sitting Respiration 12 Pulse 73 Pulse Source Pulse Oximeter Temp 97.9 F Temp Source Oral Intake Visit Reasons: 3 mos HTN Intake Note: Three month follow up Support Services Coordinator Required: No Allergies No Known Allergies [No Known Allergies*] Allergy (Verified 09/28/24 15:58) Medication List - Last Reconciled 09/28/24 by Ange Barber CNP cholecalciferol (vitamin D3) 25 mcg PO DAILY 90 days lisinopril 10 mg PO DAILY 90 days magnesium 400 mg PO DAILY peg 3350-electrolytes 236-22.74-6.74 -5.86 gram (Golytely) 240 mL PO Q10M Tobacco use date assessed: 09/28/24 Dental Screening Dental Screen Date: 06/28/24 HPI HPI Comments History of Present Illness Details 44-year-old female presents for hyperten soumya follow-up. She admits to taking her medications as prescribed without adverse reactions. Reports intermittent bilateral flank pain occurring a different intervals, left worse than right, 2 weeks ago. She denies urinary symptoms. She denies blood in her urine. No acute symptoms at this time. [facility] Medical History Dysplasia of cervix, low grade (CAMPBELL 1) HTN (hypertension) Surgical History No pertinent past surgical history Family History Mother HTN (hypertension) Maternal Grandfather Colon cancer Paternal Aunt Lung cancer Maternal Uncle Alcohol abuse Social History (Updated 09/28/24 @ 15:54 by Claudette Sutton CMA) Household Members: Spouse Household Members Other:: son Housing: House Alcohol intake: former Comment: Once a year on occasion. Not in the past few years. 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 1. Little interest or pleasure in doing things: not at all 2. Feeling down, depressed, or hopeless: not at all 3. Trouble falling or staying asleep, or sleeping too much: not at all 4. Feeling tired or having little energy: not at all 5. Poor appetite or overeating: not at all 6. Feeling bad about yourself - or that you are a failure or have let yourself or your family down: not at all 7. Trouble concentrating on things, such as reading the newspaper or watching television: not at all 8. Moving or speaking so slowly that other people could have noticed. Or the opposite - being so fidgety or restless that you have been moving around a lot more than usual: not at all 9. Thoughts that you would be better off or of hurting yourself in some way: not at all Total score: 0 Depression Screening Interpretation: Negative Depression Screening Done: Yes 92970 - PHQ-9 Billing: Yes Source: Developed by Drs. Anderson Elizondo, Marjorie Palacio, Harish Rueda and colleagues, with an educational kristin from [employer]. Thrive Questionnaire Date Thrive assessed: 06/28/24 I am a: Patient What is your living situation today?: I have a steady place to live Within the past 12 months, did the food you bought not last and you didn't have the money to get more?: Never true Within the past 12 months, did you worry whether your food would run out before you got money to buy more?: Never true Do you have trouble paying for medicines?: No Do you have trouble getting transportation to medical appointments?: No Do you have trouble paying your heating and electricity bill?: No Do you have trouble taking care of your child, family member or friend?: No Do you have trouble with day-to-day activities such as bathing, preparing meals, shopping, managing finances, etc.?: No Are you currently unemployed and looking for a job?: No Are you interested in more education?: No Please select the resources that you would like help with: None Currently or been in a relationship where the following occur: No concerns reported THRIVE Score: 0 AUDIT C Alcohol Use Questionnaire (AUDIT-C) 1. How often do you have a drink containing alcohol?: Never 3. How often do you have six or more drinks on one occasion?: Never Total Score: 0 ROMEO-7 AMB Questionnaire ROMEO-7 Date ROMEO - 7 assessed: 09/28/24 Feeling nervous, anxious, or on edge: 0 = Not at all Not being able to stop or control worryin = Not at all Worrying too much about different things: 0 = Not at all Trouble relaxin = Not at all Being so restless that it is hard to sit still: 0 = Not at all Becoming easily annoyed or irritable: 0 = Not at all Feeling afraid as if something awful might happen: 0 = Not at all Total ROMEO-7 score (0-4 normal; 5-9 mild; 10-14 moderate; 15-21 severe): 0 Source: Developed by Drs. Anderson Elizondo, Marjorie Palacio, Harish Rueda and colleagues, with an educational kristin from [employer]. ROMEO-7 Assessment Billing ROMEO-7 Assessment Tool: ROMEO-7 Assessment 43051 Review of Systems Const Details: Const Denies chills, Denies fatigue, Denies fever(s), Denies headache(s) and Denies weakness ENT Denies dizziness and Denies headache(s) Card Denies chest pain, Denies lightheadedness, Denies dyspnea and Denies other (Palpitations) Resp Denies cough, Denies dyspnea, Denies wheezing and Denies other ( shortness of breath) GI Denies abdominal pain, Denies melena, Denies hematochezia, Denies change in bowel habits, Denies dyspepsia and Denies nausea Denies hematuria and Denies dysuria Musc Denies abnormal gait, Denies myalgias, Denies arthralgias, Denies numbness and Denies tingling Skin/Breast Denies rash, Denies unusual bruising and Denies wounds Neuro Denies abnormal gait, Denies dizziness, Denies headache(s), Denies memory loss, Denies numbness, Denies Sensory deficit (Neuro), Denies tingling and Denies weakness Psych Denies anxiety, Denies depression, Denies memory loss Endo Denies cold intolerance, Denies fatigue, Denies heat intolerance, Denies polydipsia and Denies polyuria Aller/Immun Denies wheezing Physical exam (Primary Care) Vital Signs: Last Vital Signs Temp 97.9 F 09/28/24 15:52 Pulse 73 09/28/24 15:52 Resp 12 09/28/24 15:52 BP 116/76 09/28/24 15:52 BMI result Body Mass Index 28.6 Tobacco/Smoking Status: Tobacco use Status Tobacco use date assessed 09/28/24 09/28/24 15:54 Patient Tobacco Use Status Never used Tobacco 09/28/24 15:54 e-Cigarette/Vaping Use Never Used 09/28/24 15:54 PHQ-9: PHQ-9 Score PHQ-9: Total score 0 09/28/24 15:54 Depression Screening Interpretation: Negative Thrive Assessment: Date of Thrive Assessment Date Thrive assessed 06/28/24 09/28/24 15:48 Currently or been in a relationship where the following occur: No concerns repor darrius Const Other: General: no acute distress and well developed Nutritional Appearance: well nourished Orientation/consciousness: patient oriented x3 HENMT Head: Yes normocephalic and Yes atraumatic Eyes General: appearance normal, both eyes and all related structures Pupils: Equal, round and reactive pupils present EOM: EOMs intact bilaterally Resp Effort & Inspection: normal respiratory effort Auscultation: clear to auscultation bilaterally Cardio Rate: regular rate Rhythm: regular rhythm Heart sounds: S1 normal heart sound present, S2 normal heart sound present, no gallops, no murmurs and no rubs GI Palpation (GI): No Abdominal aortic bruit present, Soft to palpation, nontender, No hepatosplenomegaly present and No Rebound tenderness present Auscultation: normal bowel sounds General: Yes no CVA tenderness Back/Spine/Pelvis Back: no CVA tenderness Cervical Spine: cervical ROM normal and No Cervical spine tenderness Thoracic/Lumbar Spine: thoraco-lumbar ROM normal, No pain with thoraco-lumbar ROM, No thoracic spinal tenderness and No lumbar spinal tenderness Extrem General: Yes normal to inspection, No edema and No calf tenderness Skin General: warm and dry. Normal skin color. Normal skin turgor Neuro General: patient oriented x3, gait normal and no focal neuro deficit Cranial nerves: Yes Equal, round and reactive pupils present Cognition (Neuro): normal cognition Gait exam (Neuro): Normal gait present Sensory Exam: No Sensory deficit (Neuro) Psych Appearance: grossly normal Affect: normal affect Attitude: cooperative Thought process: Normal thought process present Coding Level of Care Code Est Pt Level 3 (39191) Complex EM visit Add On G2211 Diagnoses Essential (primary) hypertension I10 Bilateral flank pain R10.9 Additional Codes ROMEO-7 Assessment Billing - ROMEO-7 Assessment Tool: ROMEO-7 Assessment 37056 ([id number]) PHQ-9 - 68550 - PHQ-9 Billing: Yes ([id number]) Assessment & Plan Assessment & Plan (1) Essential (primary) hypertension: Code(s): I10 - Essential (primary) hypertension Category: Medical Plan: Blood pressure is 116/76, within goal of less than 140/90. Continue current treatment regimen. Follow-up in 3 months or sooner with symptoms or concerns. Verbalized understanding and agreed with the plan. (2) Bilateral flank pain: Code(s): R10.9 - Unspecified abdominal pain Category: Medical Plan: Reports intermittent bilateral flank pain occurring a different intervals, left worse than right, 2 weeks ago. She denies urinary symptoms. No hematuria. No acute symptoms at this time. Will check urinalysis. May take Tylenol ibuprofen for pain or discomfort. Warm/cool compresses encouraged. Follow-up with symptoms or concerns. Verbalized understanding and agreed with the plan. Orders: Orders UA CC w/rflx Micro + Cult Today R10.9 - Unspecified abdominal pain
[2024-09-28 15:52] VITALS: BP 116/76; PULSE 73; RESP 12; TEMP 36.6; BMI 28.6
--- OUTSIDE RECORDS SUMMARY | 2024-09-28 18:26 | XMS_ITS | Encounter Summary ---
Author Organization [employer] Address [address] [place] [address] 7 [place] [address] Care Team Providers Care Assistant Production Editor Name Role Phone Lisa Riggins MD Primary Care Provider [phone] Encounter Details Date Type Department Care Team (Latest Contact Info) Description 03/29/2022 Abstract [facility] CONVERSIONS Dental, Provider, DDS Social History Tobacco Use Types Packs/Day Years Used Date Smoking Tobacco: Never Assessed Comments Unknown Sex and Gender Information Value Date Recorded Sex Assigned at Female 04/22/2022 10:15 AM EDT Legal Sex Female 10:15 AM EDT Gender Identity Female 04/22/2022 10:15 AM EDT Sexual Orientation Straight 04/22/2022 10 :15 AM EDT documented as of this encounter Plan of Treatment Not on file documented as of this encounter Visit Diagnoses Not on filedocumented in this encounter Care Teams Assistant Production Editor Relationship Specialty Start Date End Date Lisa Riggins MD [address] [place] [phone] PCP - General Family Medicine 06/23/18 documented as of this encounter
--- OUTSIDE RECORDS SUMMARY | 2024-09-28 18:26 | XMS_ITS | Clinical Summary ---
Author Organization [employer] Address [address] [facility] 7t [place] [address] Care Team Providers Care Tower Cleaner Name Role Phone Lisa Riggins MD Primary Care Provider [phone] Social History Tobacco Use Types Packs/Day Years Used Date Smoking Tobacco: Never Assessed Comments Unknown Sex and Gender Information Value Date Recorded Sex Assigned at Female 04/22/2022 10:15 AM EDT Legal Sex Female 10:15 AM EDT Gender Identity Female 04/22/2022 10:15 AM EDT Sexual Orientation Straight 04/22/2022 10 :15 AM EDT Last Filed Vital Signs Vital Sign Reading Time Taken Comments Blood Pressure 120/72 04/10/2021 12:10 AM EDT Pulse 84 04/10/2021 12:10 AM EDT Temperature - - Respiratory Rate - - Oxygen Saturation - - Inhaled Oxygen Concentration - - Weight 79.6 kg (175 lb 6.4 oz) 04/10/2021 12:10 AM EDT Height 170.2 cm (5' 7 ) 04/10/2021 12:10 AM EDT Body Mass Index 27.47 04/10/2021 12:10 AM EDT Plan of Treatment Health Maintenance Due Date Last Done Comments CT Colonography 1978 Colonoscopy 1978 Colorectal Cancer Screening 1978 Depression Screening 1978 FIT DNA/Cologuard 1978 FIT 1978 FOBT 1978 Sigmoidoscopy 1978 Alcohol/Substance Use Screening 1990 Tobacco Screening 1990 Family Planning (PISQ) 1993 Hepatitis B Vaccines (1 of 3 - 19+ 3-dose series) 1997 Pap Smear 1999 Mammogram 2018 DTaP/Tdap/Td Vaccines (2 - Td or Tdap) 12/22/2019 12/21/2009, 04/08/2008 COVID-19 Vaccine (3 - season) 2024 03/08/2021, 02/15/2021 Influenza Vaccine (#1) 2024 06/09/2014, 2012 Cervical Cancer Screening 09/25/2026 HPV/Cotest 09/25/2026 09/25/2021, 04/0 10/2021, 05/04/2020, Additional history exists Zoster Vaccines (1 of 2) 01/10/2028 RSV Patients and Patients Aged 60 years or older (1 - 1-dose 75+ series) 2053 Hepatitis A Vaccines Aged Out 02/15/2019 No long er eligible based on patient's age to complete this topic HIB Vaccines Aged Out No longer eligi ble based on patient's age to complete this topic HPV Vaccines Aged Out No longer eligi ble based on patient's age to complete this topic IPV Vaccines Aged Out No longer eligi ble based on patient's age to complete this topic Meningococcal Vaccine Aged Out No gomez fuentes eligible based on patient's age to complete this topic Pneumococcal Vaccine: Pediatrics (0 to 5 Years) and At-Risk Patients (6 to 49) Years) Aged Out No longer eligible based on patient's age to complete this topic RSV under 20 months Aged Out No longe r eligible based on patient's age to complete this topic Rotavirus Vaccines Aged Out No longer eligible based on patient's age to complete this topic Procedures Procedure Name Priority Date/Time Associated Diagnosis Comments ALTAGRACIA HISTORICAL HPV E6/E7 RFLX HAYDEE 16 18/45 Routine 09/25/2021 10:17 AM EDT from Last 3 Months or Most Recently Relevant to Health Maintenance Results * HPV E6/E7 RFLX HAYDEE 16 18/45 (09/25/2021 10:17 AM EDT) HPV 16 RNA [facility] HPV 18/45 RNA [facility] HPV E6 E7 ADD [facility] HPV mRNA E6/E7 rflx Not Detected Not Detected [facility] Comment: Methodology: Perinatal Nurse-Mediated Amplification This assay detects E6/E7 viral messenger RNA (mRNA) from 14 high-risk HPV types (16,18,31,33,35,39,45,51,52,56,58,59,66,68). The analytical performance characteristics of this assay have been determined by [employer]. The modifications have not been cleared or approved by the FDA. This assay has been validated pursuant to the CLIA regulations and is used for clinical purposes. For additional information, please refer to http://education.[employer]/faq/BUK512h0 (This link if provided for information/ educational purposes only.) THIS TEST WAS PERFORMED AT: [facility] [address] [place] [address] [address] [place], [place] ??[id number] DEAN KAHN MD 09/25/2021 10:1 7 AM EDT us Troy Allison MD HISTORICAL/NON ORDERABLE LABS Fi nal Result [facility] [address] from Last 3 Months or Most Recently Relevant to Health Maintenance Care Teams Tower Cleaner Relationship Specialty Start Date End Date Lisa Riggins MD [address] [place] [phone] PCP - General Family Medicine 06/23/18
--- OUTSIDE RECORDS SUMMARY | 2024-09-28 18:26 | XMS_ITS | Encounter Summary ---
Author Organization [employer] Address [address] [place] [address] 7 [place] [address] Care Team Providers Care Store Protection Specialist Name Role Phone Lisa Riggins MD Primary Care Provider [phone] Encounter Details Date Type Department Care Team (Latest Contact Info) Description 07/03/2018 Abstract [facility] CONVERSIONS Dental, Provider, DDS Social History Tobacco [...] on filedocumented in this encounter Care Teams Store Protection Specialist Relationship Specialty Start Date End Date Lisa Riggins MD [address] [place] [phone] PCP - General Family Medicine 06/23/18 documented as of this encounter
--- OUTSIDE RECORDS SUMMARY | 2024-09-28 18:26 | XMS_ITS | Encounter Summary ---
Author Organization [employer] Address [address] [place] [address] 7 [place] [address] Care Team Providers Care Rod Bending Machine Operator Name Role Phone Lisa Riggins MD Primary Care Provider [phone] Encounter Details Date Type Department Care Team (Latest Contact Info) Description 07/06/2019 Abstract [facility] CONVERSIONS Dental, Provider, DDS Social History Tobacco [...] on filedocumented in this encounter Care Teams Rod Bending Machine Operator Relationship Specialty Start Date End Date Lisa Riggins MD [address] [place] [phone] PCP - General Family Medicine 06/23/18 documented as of this encounter
--- OUTSIDE RECORDS SUMMARY | 2024-09-28 18:26 | XMS_ITS | Encounter Summary ---
Author Organization [employer] Address [address] [place] [address] 7 [place] [address] Care Team Providers Care Classifier Tender Name Role Phone Lisa Riggins MD Primary Care Provider [phone] Encounter Details Date Type Department Care Team (Latest Contact Info) Description 11/03/2020 Abstract [facility] CONVERSIONS Dental, Provider, DDS Social History Tobacco [...] on filedocumented in this encounter Care Teams Classifier Tender Relationship Specialty Start Date End Date Lisa Riggins MD [address] [place] [phone] PCP - General Family Medicine 06/23/18 documented as of this encounter
== END 2024-09-28 16:15 | disposition home or self-care (01) ==
LOC: HO.HMCFM 15:31
PROVIDERS: PCP Nurse Practitioner Family; Visit Provider Nurse Practitioner Family
DX: I10 Essential (primary) hypertension (principal); R10.9 Unspecified abdominal pain

== ENCOUNTER 2024-11-30 08:58 | Day surgery (SDC) | payer OTHER, SELFPAY ==
--- OUTSIDE RECORDS SUMMARY | 2024-11-02 14:39 | XMS_ITS | Encounter Summary ---
Author Organization [email or web address] Address [address] [facility] 7t [place] [address] Care Team Providers Care Spare Hand Name Role Phone Lisa Riggins MD Primary Care Provider [phone] Encounter Details Date Type Department Care Team (Latest Contact Info) Description 11/03/2020 Abstract [facility] CONVERSIONS Dental, Provider, DDS Social History [...] on filedocumented in this encounter Care Teams Spare Hand Relationship Specialty Start Date End Date Lisa Riggins MD [address] [place] [phone] PCP - General Family Medicine 06/23/18 documented as of this encounter
--- OUTSIDE RECORDS SUMMARY | 2024-11-02 14:39 | XMS_ITS | Encounter Summary ---
Author Organization [employer] Address [address] [facility] 7t [place] [address] Care Team Providers Care Orderlies Teacher Name Role Phone Lisa Riggins MD Primary Care Provider [phone] Encounter Details Date Type Department Care Team (Latest Contact Info) Description 07/06/2019 Abstract [facility] CONVERSIONS Dental, Provider, DDS Social History [...] on filedocumented in this encounter Care Teams Orderlies Teacher Relationship Specialty Start Date End Date Lisa Riggins MD [address] [place] [address] PCP - General Family Medicine 06/23/18 documented as of this encounter
--- OUTSIDE RECORDS SUMMARY | 2024-11-02 14:39 | XMS_ITS | Encounter Summary ---
Author Organization [employer] Address [address] [facility] 7t [place] [address] Care Team Providers Care Loan Officer Assistant Name Role Phone Lisa Riggins MD Primary Care Provider [phone] Encounter Details Date Type Department Care Team (Latest Contact Info) Description 07/03/2018 Abstract [facility] CONVERSIONS Dental, Provider, DDS Social History [...] on filedocumented in this encounter Care Teams Loan Officer Assistant Relationship Specialty Start Date End Date Lisa Riggins MD [address] [place] [address] PCP - General Family Medicine 06/23/18 documented as of this encounter
--- OUTSIDE RECORDS SUMMARY | 2024-11-02 14:39 | XMS_ITS | Encounter Summary ---
Author Organization [employer] Address [address] [facility] 7t [place] [address] Care Team Providers Care Microsoft Dynamics Manager Architect Name Role Phone Lisa Riggins MD Primary Care Provider Encounter Details Date Type Department Care Team (Latest Contact Info) Description 03/29/2022 Abstract [facility] CONVERSIONS Dental, Provider, DDS Social History Tobacco [...] on filedocumented in this encounter Care Teams Microsoft Dynamics Manager Architect Relationship Specialty Start Date End Date Lisa Riggins MD [address] [place] [address] PCP - General Family Medicine 06/23/18 documented as of this encounter
--- OUTSIDE RECORDS SUMMARY | 2024-11-02 14:39 | XMS_ITS | Clinical Summary ---
Author Organization [employer] Address [address] [facility] 7t [place] [address] Care Team Providers Care Software Business Analyst Name Role Phone Lisa Riggins MD Primary Care Provider [phone] Social History Tobacco Use Types Packs/Day Years [...] this topic Meningococcal Vaccine Aged Out No goemz fuentes eligible based on patient's age to [...] mRNA E6/E7 rflx Not Detected Not Detected [facility] Comment: Methodology: Sessions Clerk-Mediated Amplification This assay detects E6/E7 viral messenger RNA (mRNA) from 14 high-risk HPV types (16,18,31,33,35,39,45,51,52,56,58,59,66,68). The analytical performance characteristics of this assay have been determined by [employer]. The modifications have not been cleared or approved by the FDA. This assay has been validated pursuant to the CLIA regulations and is used for clinical purposes. For additional information, please refer to http://education.Gemmyo/faq/WJA594w7 (This link if provided for information/ educational purposes only.) THIS TEST WAS PERFORMED AT: [facility] [address] [place] [address] [address] [place], [place] ??[address] DEAN KAHN MD 09/25/2021 10:1 7 AM EDT us Troy Allison MD HISTORICAL/NON ORDERABLE LABS Fi nal Result [facility] Formerly [facility] [address] from Last 3 Months or Most Recently Relevant to Health Maintenance Care Teams Software Business Analyst Relationship Specialty Start Date End Date Lisa Riggins MD [address] [place] [address] PCP - General Family Medicine 06/23/18
--- NOTE | 2024-11-29 10:39 | HO.ANESPROP2 ---
HPI - Anesthesia Eval Consult details Narrative: 44yo F for Colonoscopy PMFSH Active Problems Active Problems: All Active Problems Bilateral flank pain (Acute) Onychomycosis (Acute) Stress at work (Acute) Vitamin D deficiency (Acute) Hematochezia (Acute) Chronic pain of right knee (Acute) Essential (primary) hypertension (Acute) Physical exam, annual (Acute) Laboratory tests ordered as part of a complete physical exam (CPE) (Acute) Well woman exam (Acute) Past Medical History Medical History Dysplasia of cervix, low grade (CAMPBELL 1) HTN (hypertension) Family History Family History Mother HTN (hypertension) Maternal Grandfather Colon cancer Paternal Aunt Lung cancer Maternal Uncle Alcohol abuse Surgical History Surgical History Hx of colonoscopy No pertinent past surgical history Social History Social History Household Members: Spouse Household Members Other:: son Housing: House Alcohol intake: former Comment: Once a year on occasion. Not in the past few years. Patient Tobacco Use Status: Never used Tobacco e-Cigarette/Vaping Use: Never Used Second Hand Smoke Exposure: Yes service: No Current occupational status: employed Current occupation: [employer] Current occupational exposures/hazards: Yes Sexual orientation: Straight/Heterosexual Gender identity: Female Cognitive needs: No Hearing needs: No Vision needs: No Meds Allergies Allergy/AdvReac Type Severity Reaction Status Date / Time No Known Allergies (No Known Allergy Verified 09/28/24 15:58 Allergies*) Home Medications ?Medication ?Instructions ?Recorded ?Confirmed ?Last Taken ?Type magnesium 200 mg tablet 400 mg PO DAILY 05/04/20 09/28/24 Unknown History Assessment and Plan Assessment Anesthesia Assessment: Chart Reviewed
[2024-11-30 07:44] VITALS: BMI 28.6
[2024-11-30 09:34] VITALS: BP 135/88; PULSE 76; RESP 18; TEMP 36.4; O2SAT 98; BMI 28.9
--- NOTE | 2024-11-30 09:37 | HO.ANESPROP2 ---
[facility] Active Problems Active Problems: All Active Problems Bilateral flank pain (Acute) Onychomycosis (Acute) Stress at work (Acute) Vitamin D deficiency (Acute) Hematochezia (Acute) Chronic pain of right knee (Acute) Essential (primary) hypertension (Acute) Physical exam, annual (Acute) Laboratory tests ordered as part of a complete physical exam (CPE) (Acute) Well woman exam (Acute) Past Medical History Medical History Dysplasia of cervix, low grade (CAMPBELL 1) HTN (hypertension) Functional capacity: independent ambulation Patient : No Family History Family History Mother HTN (hypertension) Maternal Grandfather Colon cancer Paternal Aunt Lung cancer Maternal Uncle Alcohol abuse Surgical History Surgical History Hx of colonoscopy No pertinent past surgical history History of Problems with Anesthesia: No Social History Social History Household Members: Spouse Household Members Other:: son Housing: House Alcohol intake: former Comment: Once a year on occasion. Not in the past few years. Patient Tobacco Use Status: Never used Tobacco e-Cigarette/Vaping Use: Never Used Second Hand Smoke Exposure: Yes Have you been hit, kicked, punched, or otherwise hurt by someone within the past year? 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 Current occupational exposures/hazards: Yes Sexual orientation: Straight/Heterosexual Gender identity: Female Cognitive needs: No Hearing needs: No Vision needs: No Meds Allergies Allergy/AdvReac Type Severity Reaction Status Date / Time No Known Allergies Allergy Verified 09/28/24 15:58 [No Known Allergies*] Active Medications: Current Medications Lactated Ringer's (Lr) 1,000 mls @ 100 mls/hr IVCONT .Q10H ROSELYN Home Medications ?Medication ?Instructions ?Recorded ?Confirmed ?Last Taken ?Type magnesium 200 mg tablet 400 mg PO DAILY 05/04/20 09/28/24 Unknown History Exam Height,Weight and Vital Signs: Height 5 ft 6 in Weight 81.3 kg Last Vital Signs Temp 97.5 F 11/30/24 09:34 Pulse 76 11/30/24 09:34 Resp 18 11/30/24 09:34 BP 135/88 11/30/24 09:34 Pulse Ox 98 11/30/24 09:34 O2 Del Method Room Air 11/30/24 09:34 Airway Mallampati Class: II TM Dist: >3cm Neck ROM: Full Heart: RRR Lungs: CTS Assessment and Plan Assessment Anesthesia Assessment: Anesthesia Plan Discussed Final Anesthetic Review History of Problems with Anesthesia: No NPO: Yes ASA Class: II Final Preanesthetic Review: Meds/Allgs Chart Reviewed, Consent Obtained/Reviewed and Anes Risks/Benef Reviewed Patient Risk: Low Procedure Risk: Low Anesthetic Plan Anesthetic Plan: MAC: Disposition: Standard PACU
[2024-11-30] MEDS: Lactated Ringers 1,000 ML 100 ML IVCONT (09:43)
[2024-11-30 09:46] LABS: UPreg QC Valid YES; Urine Pregnancy NEGATIVE (NEGATIVE)
--- NOTE | 2024-11-30 11:14 | MHC.SHP ---
Pre-Procedural Eval Section A - 24 Hr Update-Section A only Date of Service: 11/30/24 Section B - Complete if H&P > 30 days Chief Complaint: Hemorrhage of anus and rectum Details of Present Illness: Dysplasia of cervix, low grade (CAMPBELL 1) HTN (hypertension) Surgical History No pertinent past surgical history Present Medications: see Short Stay Collaborative assessment Allergies: Allergies Allergy/AdvReac Type Severity Reaction Status Date / Time No Known Allergies Allergy Verified 09/28/24 15:58 [No Known Allergies*] Review of Systems Review of Systems Comment: 10 point ROS negative Exam Surgical H&P Exam: Normal: HEENT, Normal: Heart, Normal: Lungs, Normal: Extremities, Normal: Abdomen, Normal: Skin and Normal: Neurological Plan Diagnosis/Plan: Unchanged I have reviewed the history and physical and performed a pertinent physical examination on my patient. No changes have occurred unless specified. Time Spent With Patient Time: Total time managing care of this patient today ____ minutes.
[2024-11-30 12:02] VITALS: BP 122/74; PULSE 74; RESP 16; TEMP 36.1; O2SAT 99
[2024-11-30 12:14] VITALS: BP 138/79; PULSE 64; RESP 16; TEMP 36.1; O2SAT 100
--- NOTE | 2024-11-30 12:22 | P.OPN-COLO_ITS ---
Colonoscopy Operative Note Operative Note Date of Service: 11/30/24 Narrative: Procedure: Colonoscopy Indication: Rectal bleeding Endoscopist: Lauren Lees MD Anesthesia Provider: Dr Angela Adamson Anesthesia type: MAC Instrument: Olympus [id number]-[id number] Consent: Indication, risks vs benefits, and alternatives were discussed with the patient who gave written informed consent to proceed. EKG, pulse, pulse oximetry and blood pressure were monitored throughout the procedure. Please see anesthesia flowsheet. Procedure: The patient was brought to the procedure room and placed in the left lateral decubitus position. An abdominal binder was affixed to the lower abdomen. IV medications were administered by the anesthesia provider in attendance. A digital rectal exam was performed which was abnormal due to finding of large external hemorrhoids. A distal attachment cap was affixed to the tip of the colonoscope which was then inserted through the anus and advanced through the colon to the cecum at 75 cm,and terminal ileum. Appendiceal orifice and ileocecal valve were identified. Mucosa was carefully examined under high definition white light as the instrument was slowly withdrawn in a retrograde panoramic fashion. Retroflexion was performed in ascending colon and rectum. The procedure was not difficult. There were no immediate obvious complications. The quality of the prep was BBPS: 3+2+3 = adequate Withdrawal time 9 minutes. Limitations: No limitations. Findings: Mucosa: Normal to cecum and terminal ileum. Protruding lesions: * medium internal hemorrhoids without stigmata of recent bleeding. Impression: 1. Normal colon and terminal ileum mucosa 2. External and internal hemorrhoids Recommendations: - Repeat colonoscopy for asymptomatic colorectal ca screening in 10 years.
== END 2024-11-30 12:54 | disposition home or self-care (01) ==
PROVIDERS: Nurse Practitioner; PCP Nurse Practitioner Family; Visit Provider Internal Medicine
PROC: 0DJD8ZZ Inspection of Lower Intestinal Tract, Via Natural or Artificial Opening Endoscopic (ICD-10-PCS; CPT 45378; principal; 2024-11-30 11:00)
DX: K62.5 Hemorrhage of anus and rectum (principal); K64.8 Other hemorrhoids; K64.4 Residual hemorrhoidal skin tags; I10 Essential (primary) hypertension; N87.0 Mild cervical dysplasia; Z79.899 Other long term (current) drug therapy
CPT/HCPCS: 45378; 81025; J2003; J2704

== ENCOUNTER → 2024-11-30 08:58 | Outpatient (BNV) | payer OTHER, SELFPAY | PROVIDERS: PCP Nurse Practitioner Family; Visit Provider Internal Medicine | DX: K62.5 Hemorrhage of anus and rectum (principal); K64.8 Other hemorrhoids | CPT/HCPCS: 45378 ==

== ENCOUNTER 2025-01-21 16:07 | Outpatient (REF) | payer OTHER, SELFPAY ==
--- OUTSIDE RECORDS SUMMARY | 2025-01-21 16:09 | XMS_ITS | Encounter Summary ---
Author Organization [employer] Address [address] [place] [address] 7 [place] [address] Care Team Providers Care Motor Room Controller Name Role Phone Lisa Riggins MD Primary Care Provider [phone] Encounter Details Date Type Department Care Team (Latest Contact Info) Description 07/03/2018 Abstract [facility] CONVERSIONS Dental, Provider, DDS Social History [...] on filedocumented in this encounter Care Teams Motor Room Controller Relationship Specialty Start Date End Date Lisa Riggins MD [address] [place] [address] PCP - General Family Medicine 06/23/18 documented as of this encounter
== END 2025-01-21 16:08 | disposition home or self-care (01) ==
LOC: HO.MAMMO 16:07
PROVIDERS: PCP Nurse Practitioner Family; Visit Provider Nurse Practitioner Family
DX: Z12.31 Encounter for screening mammogram for malignant neoplasm of breast (principal)
CPT/HCPCS: 77063; 77067

== ENCOUNTER → 2025-01-21 16:30 | Outpatient (BNV) | payer OTHER, SELFPAY | PROVIDERS: PCP Nurse Practitioner Family; Visit Provider Internal Medicine | DX: Z12.31 Encounter for screening mammogram for malignant neoplasm of breast (principal) | CPT/HCPCS: 77063; 77067 ==

== ENCOUNTER 2025-04-26 08:40 | Outpatient (AMB) | payer OTHER, SELFPAY ==
[2025-04-26 08:43] VITALS: BMI 27.6
--- NOTE | 2025-04-26 08:43 | A.OFFVIS_ITS ---
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 No complaints. Last Pap/HPV was negative in 10/12 Last Mammogram was BI-RADS 1 in the 02/14 Last screening colonoscopy was done in 12/15, the recommendation was to repeat in 10 years [facility] Medical History Dysplasia of cervix, low grade (CAMPBELL 1) HTN (hypertension) Surgical History Hx of colonoscopy No pertinent past surgical history Family History Mother HTN (hypertension) Maternal Grandfather Colon cancer Paternal Aunt Lung cancer Maternal Uncle Alcohol abuse Social History Household Members: Spouse Household Members Other:: son Housing: House Alcohol intake: former Comment: Once a year on occasion. Not in the past few years. 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 Current occupational exposures/hazards: Yes Sexual orientation: Straight/Heterosexual Gender identity: Female Cognitive needs: No Hearing needs: No Vision needs: No Female Reproductive History Menstrual Age of Menarche: 10 Date of last pap smear: 09/26/21 Date of Mammogram: 01/21/25 Review of Systems Const All systems reviewed & are unremarkable except as noted in HPI and below Card Reports as per HPI Resp Reports as per HPI GI Reports as per HPI and Reports no additional complaints Reports as per HPI Physical Exam Const General: cooperative, healthy appearing and comfortable Chest Chest palpation & inspection: normal inspection of the chest and normal palpation of entire chest wall Breast/axilla inspection: normal inspection of the breasts and normal inspection of the axillae Breast/axilla palpation: normal palpation of the breasts, normal palpation of the axillae and no axillary lymphadenopathy Resp Effort & Inspection: normal respiratory effort Auscultation: clear to auscultation bilaterally Percussion: percussion normal Cardio Palpation: normal PMI Rate: regular rate Rhythm: regular rhythm Heart sounds: no murmurs and no rubs Peripheral pulses: Peripheral pulses 2+ throughout GI Inspection: Yes normal to inspection Palpation (GI): Soft to palpation, nontender, no guarding, not rigid and No hepatosplenomegaly present Percussion: Yes normal to percussion Auscultation: normal bowel sounds Rectal Exam - Female: deferred General: Yes bladder normal to palpation External Female Exam: No lesion Speculum Exam - Vagina: normal appearance of the vagina, normal palpation, normal vaginal discharge and not erythematous Speculum Exam - Cervix: normal appearance of the cervix and normal palpation Bimanual exam- vagina & uterus: normal bimanual exam, normal palpation, uterine size normal, bladder normal to palpation, consistency normal and normal palpation Bimanual Exam- Adnexa, other: normal adnexae, no masses and no tenderness Assessment & Plan Assessment & Plan (1) Well woman exam: Comment: History of CAMPBELL 1 persistent 2018 status post LEEP followed by negative co testing in 2018 and 2019 and negative co testing in 10/12 Code(s): Z01.419 - Encounter for gynecological examination (general) (routine) without abnormal findings Category: Medical Plan: Cotesting not indicated this year. Instructions given to patient to schedule next screening Mammogram in 02/15. Counseled the patient about the recommended dietary allowance of 1000 mg of Calcium & 600 IU of vitamin D. The patient was instructed to perform monthly self-breast exams and to schedule an annual exam in a year; All questions answered and the patient verbalized understanding. Instructed the patient to schedule annual exam in a year Coding Level of Care Code Est Pt Prev Care 40-64y(00233) Diagnoses Well woman exam Z01.419
--- OUTSIDE RECORDS SUMMARY | 2025-04-26 09:04 | XMS_ITS | Clinical Summary ---
Author Organization [facility] Address [address] [facility] [address] [place] [phone] Phone Care Team Providers Care Survey Associate Name Role Phone Unavailable Primary Care Provider Unavailabl e Social History Tobacco Use Types Packs/Day Years Used Date Smoking Tobacco: Never Assessed Education Answer Date Recorded Are you interested in more education? Not on jose antonio e 10/18/2022 Are you concerned about learning? Not on file 10/18/2022 No 10/18/2022 No 10/18/2022 Digital Access Answer Date Recorded No 11/19/2022 No 11/19/2022 Reliable internet access at home? Not on file 11/19/2022 Device with a working camera? Not on file Comments Unknown Sex and Gender Information Value Date Recorded Sex Assigned at Not on file Legal Sex Female 11:35 AM EST Gender Identity Not on file Sexual Orientation Not on file Plan of Treatment Not on file Medical Devices Not on file [place] [address] [place] [address] PPO BLUE CROSS OUT OF STATE PPO CROSS OUT OF [facility] PPO BLUE CROSS OUT OF STATE PPO BLUE CROSS OUT OF STATE PPO BLUE CROSS OUT OF STATE PPO BLUE CROSS OUT OF STATE PPO BLUE CROSS OUT OF [place] [address] [place] [address] OUT OF STATE PPO Additional Source Comments The information contained in this document represents components of the legal health record. It is not the complete legal health record.[facility]
--- OUTSIDE RECORDS SUMMARY | 2025-04-26 09:04 | XMS_ITS | Encounter Summary ---
Author Organization [facility] Address [address] [facility] [address] [place] [address] Phone Care Team Providers Care Med Peds Name Role Phone Unavailable Primary Care Provider Unavailabl e Encounter Details Date Type Department Care Team (Late st Contact Info) Description 05/03/2020 Procedure Pass [facility] [address] [place] [address] [place], [place] [id number] Social History Tobacco Use Types Packs/Day Years Used Date Smoking Tobacco: Never Assessed Comments Unknown Sex and Gender Information Value Date Recorded Sex Assigned at Not on file Legal Sex Female 11:35 AM EST Gender Identity Not on file Sexual Orientation Not on file documented as of this encounter Plan of Treatment Not on file documented as of this encounter Visit Diagnoses Not on filedocumented in this encounter Additional Source Comments The information contained in this document represents components of the legal health record. It is not the complete legal health record.[facility]
--- OUTSIDE RECORDS SUMMARY | 2025-04-26 09:04 | XMS_ITS | Encounter Summary ---
Author Organization [facility] Address [address] [facility] [address] [place] [address] Phone Care Team Providers Care Pipe Cleaning Machine Operator Name Role Phone Unavailable Primary Care Provider Unavailabl e Encounter Details Date Type Department Care Team (Late st Contact Info) Description 05/03/2020 Ancillary Orders [facility] [address] [place] [address] Beverley Silveira PA [address] [place] [address] [email or web address] Palpitations Social History Tobacco Use Types Packs/Day Years Used Date Smoking Tobacco: Never Assessed Comments Unknown Sex and Gender Information Value Date Recorded Sex Assigned at Not on file Legal Sex Female 11:35 AM EST Gender Identity Not on file Sexual Orientation Not on file documented as of this encounter Plan of Treatment Not on file documented as of this encounter Results * Holter Monitor 48 Hours (05/03/2020 12:35 PM EST) Anatomical Region Laterality Modality Heart Other Narrative 05/03/2020 12:53 PM EST 48-hour monitor: Baseline rhythm is sinus rhythm with a minimum heart rate 53, maximum 141, average 76 bpm. There are no long pauses present. There are 6 PACs and 3 PVCs. There is no diary submitted. There is a single patient event marker which occurred during sinus rhythm at 80 bpm. Impression: Normal 48-hour monitor. No diary submitted. A single patient event marker during sinus rhythm without ectopy. Procedure Note William Hawley MD - 05/03/2020 48-hour monitor: Baseline rhythm is sinus rhythm with a minimum heart rate53, maximum 141, average 76 bpm. There are no long pauses present. Thereare 6 PACs and 3 PVCs. There is no diary submitted. There is a singlepatient event marker which occurred during sinus rhythm at 80 bpm. Impression: Normal 48-hour monitor. No diary submitted. A single patientevent marker during sinus rhythm without ectopy. Beverley [facility] ORDERA BLES Final Result documented in this encounter Visit Diagnoses Diagnosis Palpitations Palpitations documented in this encounter Additional Source Comments The information contained in this document represents components of the legal health record. It is not the complete legal health record.[facility]
--- OUTSIDE RECORDS SUMMARY | 2025-04-26 09:04 | XMS_ITS | Encounter Summary ---
Author Organization [employer] Address [address] [place] [address] 7 [place] [address] Care Team Providers Care Dowel Sticker Operator Name Role Phone Lisa Riggins MD Primary Care Provider [phone] Encounter Details Date Type Department Care Team (Latest Contact Info) Description 07/03/2018 Abstract [facility] CONVERSIONS Dental, Provider, DDS Social [...] on filedocumented in this encounter Care Teams Dowel Sticker Operator Relationship Specialty Start Date End Date Lisa Riggins MD [address] [place] [phone] PCP - General Family Medicine 06/23/18 03/07/25 documented as of this encounter
--- OUTSIDE RECORDS SUMMARY | 2025-04-26 09:04 | XMS_ITS | Clinical Summary ---
Author Organization [employer] Address [address] [facility] 7t [place] [address] Care Team Providers Care Barge Worker Name Role Phone Unavailable Primary Care Provider [...] 1978 FIT 1978 FOBT 1978 Sigmoidoscopy 1978 Disability Screening 1978 Alcohol/Substance Use Screening 1990 Tobacco Screening 1990 Family Planning (PISQ) 1993 Hepatitis B Vaccines (1 of 3 - 19+ 3-dose series) 1997 Pap Smear 1999 Mammogram 2018 DTaP/Tdap/Td Vaccines (2 - Td or Tdap) 12/22/2019 12/21/2009, 04/08/2008 COVID-19 Vaccine (3 - season) 2025 03/08/2021, 02/15/2021 Influenza Vaccine (#1) 2025 06/09/2014, 2012 Cervical Cancer Screening 09/25/2026 HPV/Cotest [...] patient's age to complete this topic Meningococcal B Vaccine Aged Out No l onger eligible based on patient's age to complete this topic Meningococcal Vaccine Aged Out No gomez fuentes eligible based on patient's age to complete this topic Pneumococcal Vaccine: Pediatrics (0 to 5 Years) and At-Risk Patients (6 to 49) Years Aged Out No longer eligible based on [...] mRNA E6/E7 rflx Not Detected Not Detected [facility] Comment: Methodology: Winder Helper-Mediated Amplification This assay detects E6/E7 viral messenger RNA (mRNA) from 14 high-risk HPV types (16,18,31,33,35,39,45,51,52,56,58,59,66,68). The analytical performance characteristics of this assay have been determined by [employer]. The modifications have not been cleared or approved by the FDA. This assay has been validated pursuant to the CLIA regulations and is used for clinical purposes. For additional information, please refer to http://education.[employer]Mine/faq/HPO914e1 (This link if provided for information/ educational purposes only.) THIS TEST WAS PERFORMED AT: [facility] [address] [place] [address] [address]LO[address],[place] [address] DEAN KAHN MD 09/25/2021 10:1 7 AM EDT Troy Allison MD HISTORICAL/NON ORDERABLE LABS Fi nal Result [facility] [address] from Last 3 Months or Most Recently Relevant to Health Maintenance
--- OUTSIDE RECORDS SUMMARY | 2025-04-26 09:04 | XMS_ITS | Encounter Summary ---
Author Organization [employer] Address [address] [place] [address] 7 [place] [address] Care Team Providers Care Watch Repair Technician Name Role Phone Lisa Riggins MD Primary Care Provider [phone] Encounter Details Date Type Department Care Team (Latest Contact Info) Description 03/29/2022 Abstract [facility] CONVERSIONS Dental, Provider, DDS Social History Tobacco [...] on filedocumented in this encounter Care Teams Watch Repair Technician Relationship Specialty Start Date End Date Lisa Riggins MD [address] [place] [id number] PCP - General Family Medicine 06/23/18 03/07/25 documented as of this encounter
--- OUTSIDE RECORDS SUMMARY | 2025-04-26 09:04 | XMS_ITS | Encounter Summary ---
Author Organization [facility] Address [address] [place] [address] Phone Care Team Providers Care Tray Casting Machine Operator Name Role Phone Unavailable Primary Care Provider Unavailabl e Encounter Details Date Type Department Care Team (Late st Contact Info) Description 05/03/2020 Ancillary Orders [facility] [address] [place] [address] Beverley Silveira PA [address] [place] [address] [email or web address] Social History Tobacco Use Types Packs/Day Years Used Date Smoking Tobacco: Never Assessed Comments Unknown Sex and Gender Information Value Date Recorded Sex Assigned at Not on file Legal Sex Female 11:35 AM EST Gender Identity Not on file Sexual Orientation Not on file documented as of this encounter Plan of Treatment Not on file documented as of this encounter Visit Diagnoses Diagnosis Palpitations documented in this encounter Additional Source Comments The information contained in this document represents components of the legal health record. It is not the complete legal health record.[facility]
--- OUTSIDE RECORDS SUMMARY | 2025-04-26 09:04 | XMS_ITS | Encounter Summary ---
Author Organization [employer] Address [address] [place] [address] 7 [place] [address] Care Team Providers Care Utility Bill Complaints Investigator Name Role Phone Lisa Riggins MD Primary Care Provider [phone] Encounter Details Date Type Department Care Team (Latest Contact Info) Description 07/06/2019 Abstract [facility] CONVERSIONS Dental, Provider, DDS Social [...] on filedocumented in this encounter Care Teams Utility Bill Complaints Investigator Relationship Specialty Start Date End Date Lisa Riggins MD [address] [place] [id number] PCP - General Family Medicine 06/23/18 03/07/25 documented as of this encounter
--- OUTSIDE RECORDS SUMMARY | 2025-04-26 09:04 | XMS_ITS | Encounter Summary ---
Author Organization [employer] Address [address] [place] [address] 7 [place] [address] Care Team Providers Care Dispatcher Tow Truck Name Role Phone Lisa Riggins MD Primary Care Provider [phone] Encounter Details Date Type Department Care Team (Latest Contact Info) Description 11/03/2020 Abstract [facility] CONVERSIONS Dental, Provider, DDS Social History [...] on filedocumented in this encounter Care Teams Dispatcher Tow Truck Relationship Specialty Start Date End Date Lisa Riggins MD [address] [place] [id number] PCP - General Family Medicine 06/23/18 03/07/25 documented as of this encounter
== END 2025-04-26 08:56 | disposition home or self-care (01) ==
LOC: HO.HWS 08:40
PROVIDERS: PCP Nurse Practitioner Family; Visit Provider Obstetrics & Gynecology
DX: Z01.419 Encounter for gynecological examination (general) (routine) without abnormal findings (principal)
CPT/HCPCS: 99396; 99459

== ENCOUNTER → 2025-04-26 08:40 | Outpatient (BNVA) | payer OTHER, SELFPAY | PROVIDERS: PCP Nurse Practitioner Family; Visit Provider Obstetrics & Gynecology | DX: Z01.419 Encounter for gynecological examination (general) (routine) without abnormal findings (principal) | CPT/HCPCS: 99396 ==

== ENCOUNTER 2025-05-16 11:47 | Outpatient (AMB) | payer OTHER, SELFPAY ==
--- NOTE | 2025-05-16 11:50 | A.OFFPC_ITS ---
Vital Signs 05/16/25 11:55 Height 5 ft 6 in Weight 173 lb 6 oz BMI 28.0 BP 132/74 Blood Pressure Location Rt brachial Position Sitting Respiration 16 Pulse 72 Pulse Source Pulse Oximeter Temp 98.0 F Temp Source Oral Pulse Oximetry (%) 98 Oxygen Delivery Method Room Air Intake Visit Reasons: Back pain Intake Note: patient here c/o back pain for like a month Supervisor Yard Required: No Is last menstrual period known: Yes Last menstrual period: 05/16/25 Post menopausal: No Patient : No Allergies No Known Allergies (No Known Allergies*) Allergy (Verified 05/16/25 12:14) Medication List - Last Reconciled 05/16/25 by Ange Barber CNP cholecalciferol (vitamin D3) 25 mcg PO DAILY 90 days lisinopril 10 mg PO DAILY 90 days magnesium 400 mg PO DAILY Tobacco use date assessed: 05/16/25 Dental Screening Dental Screen Date: 05/16/25 Did you have a dental visit in the last 12 months?: No Did you have a dental problem in the last 6 months where you did not have access to dental care?: No Was dental information given to patient?: Patient has dentist HPI HPI Comments History of Present Illness Details 45-year-old female presents with complai nts of left sided low back pain which is localized. She describes the pain as stabbing, worst with bending. Her symptoms have been going for the past month and half. She denies fall, injury, or trauma. Tylenol extra strength does not provide relief. She notes that cyclobenzaprine was effictive for similar pain in the past. 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 [facility] Medical History Dysplasia of cervix, low grade (CAMPBELL 1) HTN (hypertension) Surgical History Hx of colonoscopy No pertinent past surgical history Family History Mother HTN (hypertension) Maternal Grandfather Colon cancer Paternal Aunt Lung cancer Maternal Uncle Alcohol abuse Social History Household Members: Spouse Household Members Other:: son Housing: House Alcohol intake: former Comment: Once a year on occasion. Not in the past few years. 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 Current occupational exposures/hazards: Yes Sexual orientation: Straight/Heterosexual Gender identity: Female Cognitive needs: No Hearing needs: No Vision needs: No Female Reproductive History Menstrual Age of Menarche: 10 Date of last menstrual period: 05/16/25 Questionnaire Thrive Questionnaire Date Thrive assessed: 06/28/24 I am a: Patient What is your living situation today?: I have a steady place to live Within the past 12 months, did the food you bought not last and you didn't have the money to get more?: Never true Within the past 12 months, did you worry whether your food would run out before you got money to buy more?: Never true Do you have trouble paying for medicines?: No Do you have trouble getting transportation to medical appointments?: No Do you have trouble paying your heating and electricity bill?: No Do you have trouble taking care of your child, family member or friend?: No Do you have trouble with day-to-day activities such as bathing, preparing meals, shopping, managing finances, etc.?: No Are you currently unemployed and looking for a job?: No Are you interested in more education?: No Please select the resources that you would like help with: None Currently or been in a relationship where the following occur: No concerns reported THRIVE Score: 0 ROMEO-7 AMB Questionnaire ROMEO-7 Date ROMEO - 7 assessed: 09/28/24 Source: Developed by Drs. Anderson Elizondo, Marjorie Palacio, Harish Rueda and colleagues, with an educational kristin from [employer]. Review of Systems Const Details: Const Denies chills, Denies fatigue, Denies fever(s), Denies headache(s) and Denies weakness ENT Denies dizziness and Denies headache(s) Card Denies chest pain, Denies lightheadedness, Denies dyspnea and Denies other (Palpitations) Resp Denies cough, Denies dyspnea, Denies wheezing and Denies other ( shortness of breath) GI Denies abdominal pain, Denies melena, Denies hematochezia, Denies change in bowel habits, Denies dyspepsia and Denies nausea Denies hematuria and Denies dysuria Musc Reports as per HPI Skin/Breast Denies rash, Denies unusual bruising and Denies wounds Neuro Denies abnormal gait, Denies dizziness, Denies headache(s), Denies memory loss, Denies numbness, Denies Sensory deficit (Neuro), Denies tingling and Denies weakness Psych Denies anxiety, Denies depression, Denies memory loss Endo Denies cold intolerance, Denies fatigue, Denies heat intolerance, Denies polydipsia and Denies polyuria Aller/Immun Denies wheezing Physical exam (Primary Care) Vital Signs: Last Vital Signs Temp 98.0 F 05/16/25 11:55 Pulse 72 05/16/25 11:55 Resp 16 05/16/25 11:55 BP 132/74 05/16/25 11:55 Pulse Ox 98 05/16/25 11:55 Oxygen Delivery Method Room Air 05/16/25 11:55 BMI result Body Mass Index 28.0 Tobacco/Smoking Status: Tobacco use Status Tobacco use date assessed 05/16/25 05/16/25 11:57 Patient Tobacco Use Status Never used Tobacco 05/16/25 11:51 e-Cigarette/Vaping Use Never Used 05/16/25 11:51 Thrive Assessment: Date of Thrive Assessment Date Thrive assessed 06/28/24 05/16/25 11:51 Currently or been in a relationship where the following occur: No concerns reported Const Other: General: no acute distress and well developed Nutritional Appearance: well nourished Orientation/consciousness: patient oriented x3 HENMT Head: Yes normocephalic and Yes atraumatic Eyes General: appearance normal, both eyes and all related structures Pupils: Equal, round and reactive pupils present EOM: EOMs intact bilaterally Resp Effort & Inspection: normal respiratory effort Auscultation: clear to auscultation bilaterally Cardio Rate: regular rate Rhythm: regular rhythm Heart sounds: S1 normal heart sound present, S2 normal heart sound present, no gallops, no murmurs and no rubs GI Palpation (GI): No Abdominal aortic bruit present, Soft to palpation, nontender, No hepatosplenomegaly present and No Rebound tenderness present Auscultation: normal bowel sounds General: Yes no CVA tenderness Back/Spine/Pelvis Back: no CVA tenderness Cervical Spine: cervical ROM normal and No Cervical spine tenderness Thoracic/Lumbar Spine: thoraco-lumbar ROM normal, No pain with thoraco-lumbar ROM, No thoracic spinal tenderness and No lumbar spinal tenderness. No overt injury or trauma Extrem General: Yes normal to inspection, No edema and No calf tenderness Skin General: warm and dry. Normal skin color. Normal skin turgor Neuro General: patient oriented x3, gait normal and no focal neuro deficit Cranial nerves: Yes Equal, round and reactive pupils present Cognition (Neuro): normal cognition Gait exam (Neuro): Normal gait present Sensory Exam: No Sensory deficit (Neuro) Psych Appearance: grossly normal Affect: normal affect Attitude: cooperative Thought process: Normal thought process present Coding Level of Care Code Est Pt Level 4 (05234) Diagnoses Back pain M54.9 Essential (primary) hypertension I10 Assessment & Plan Assessment & Plan (1) Back pain: Code(s): M54.9 - Dorsalgia, unspecified Category: Medical Plan: Patient reports left sided low back pain which is localized. She describes the pain as stabbing, worst with bending. Her symptoms have been going for the past month and half. She denies fall, injury, or trauma. Tylenol extra strength does not provide relief. She notes that cyclobenzaprine was effictive for similar pain in the past. 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 Normal physical exam. No overt injury or trauma. Likely back strain/sprain. Naproxen and cyclobenzaprine as prescribed. Advised to take naproxen with food. Instructed on the risks, benefits, and potential adverse reactions of the medications. Warm/cool compresses encouraged. Instructed on proper body mechanics with lifting. Follow-up for transfer of care with a new provider within the practice. Return sooner with symptoms or concerns. Verbalized understanding and agreed with the plan. (2) Essential (primary) hypertension: Code(s): I10 - Essential (primary) hypertension Category: Medical Plan: Blood pressure is 132/74, within goal of less than 140/90. Continue current treatment regimen. Low-sodium diet encouraged. Follow-up as planned. Verbalized understanding and agreed with the plan. Medications: New naproxen Take with food 500 mg PO BID PRN 60 tabs 0RF pain cyclobenzaprine 10 mg PO BID PRN 30 tabs 0RF muscle spasm
[2025-05-16 11:55] VITALS: BP 132/74; PULSE 72; RESP 16; TEMP 36.7; O2SAT 98; BMI 28.0
--- OUTSIDE RECORDS SUMMARY | 2025-05-16 15:45 | XMS_ITS | Encounter Summary ---
Author Organization [facility] Address [address] [place] [address] Phone Care Team Providers Care Finished Cloth Examiner Name Role Phone Unavailable Primary Care Provider Unavailabl e Encounter Details Date Type Department Care Team (Late st Contact Info) Description 05/03/2020 Ancillary Orders [facility] [address] [place] [address] Beverley Silveira PA [address] [place] [address] [email or web address] Palpitations Social History Tobacco Use Types Packs/Day [...] It is not the complete legal health record.[facility]
--- OUTSIDE RECORDS SUMMARY | 2025-05-16 15:45 | XMS_ITS | Encounter Summary ---
Author Organization [employer] Address [address] [place] [address] 7 [place] [address] Care Team Providers Care Quartz Orientator Name Role Phone Lisa Riggins MD Primary Care Provider Encounter Details Date Type Department Care Team (Latest Contact Info) Description 07/03/2018 Abstract [facility] CONVERSIONS Dental, Provider, DDS Social History Tobacco [...] on filedocumented in this encounter Care Teams Quartz Orientator Relationship Specialty Start Date End Date Lisa Riggins MD [address] [place] [id number] PCP - General Family Medicine 06/23/18 03/07/25 documented as of this encounter
--- OUTSIDE RECORDS SUMMARY | 2025-05-16 15:45 | XMS_ITS | Encounter Summary ---
Author Organization [facility] Address [address] [place] [address] Phone Care Team Providers Care Oxidized Finish Plater Name Role Phone Unavailable Primary Care Provider Unavailabl e Encounter Details Date Type Department Care Team (Late st Contact Info) Description 05/03/2020 Procedure [facility] [address] [place] [address] [place], [place] [id number] Social History Tobacco Use Types Packs/Day Years [...]
--- OUTSIDE RECORDS SUMMARY | 2025-05-16 15:45 | XMS_ITS | Encounter Summary ---
Author Organization [employer] Address [address] [place] [address] 7 [place] [address] Care Team Providers Care Manager Presentation Name Role Phone Lisa Riggins MD Primary Care Provider Encounter Details Date Type Department Care Team (Latest Contact Info) Description 11/03/2020 Abstract [facility] CONVERSIONS Dental, Provider, DDS Social History [...] on filedocumented in this encounter Care Teams Manager Presentation Relationship Specialty Start Date End Date Lisa Riggins MD [address] [place] [id number] PCP - General Family Medicine 06/23/18 03/07/25 documented as of this encounter
--- OUTSIDE RECORDS SUMMARY | 2025-05-16 15:45 | XMS_ITS | Encounter Summary ---
Author Organization [employer] Address [address] [place] [address] 7 [place] [address] Care Team Providers Care Pbx Installer Name Role Phone Lisa Riggins MD Primary Care Provider [phone] Encounter Details Date Type Department Care Team (Latest Contact Info) Description 07/06/2019 Abstract [facility] CONVERSIONS Dental, Provider, DDS Social History [...] on filedocumented in this encounter Care Teams Pbx Installer Relationship Specialty Start Date End Date Lisa Riggins MD [address] [place] [id number] PCP - General Family Medicine 06/23/18 03/07/25 documented as of this encounter
--- OUTSIDE RECORDS SUMMARY | 2025-05-16 15:45 | XMS_ITS | Clinical Summary ---
Author Organization [employer] Address [address] 7[address] [place] [address] Care Team Providers Care Body Hanger Name Role Phone Unavailable Primary Care Provider [...] E6/E7 rflx Not Detected Not Detected [facility] Comment: Methodology: Lens Inserter-Mediated Amplification This assay detects E6/E7 viral messenger RNA (mRNA) from 14 high-risk HPV types (16,18,31,33,35,39,45,51,52,56,58,59,66,68). The analytical performance characteristics of this assay have been determined by [employer]. The modifications have not been cleared or approved by the FDA. This assay has been validated pursuant to the CLIA regulations and is used for clinical purposes. For additional information, please refer to http://education.[employer]/faq/QTC043o8 (This link if provided for information/ educational purposes only.) THIS TEST WAS PERFORMED AT: [facility] [address] [place] [address] [address],[place] [address] DEAN KAHN MD 09/25/2021 10:1 7 AM EDT rToy Allison MD HISTORICAL/NON ORDERABLE LABS Fi nal Result [facility] [address] from Last 3 Months or Most Recently Relevant to Health Maintenance
--- OUTSIDE RECORDS SUMMARY | 2025-05-16 15:45 | XMS_ITS | Encounter Summary ---
Author Organization [facility] Address [address] [place] [address] Phone Care Team Providers Care Beef Grader Name Role Phone Unavailable Primary Care Provider Unavailabl e Encounter Details Date Type Department Care Team (Late st Contact Info) Description 05/03/2020 Ancillary Orders [facility] [address] [place] [address] Beverley Silveira PA [address] [place] [address] [email or web address] Palpitations Social History Tobacco Use Types Packs/Day [...] It is not the complete legal health record.[facility]
--- OUTSIDE RECORDS SUMMARY | 2025-05-16 15:45 | XMS_ITS | Encounter Summary ---
Author Organization [employer] Address [address] [place] [address] 7 [place] [address] Care Team Providers Care Environmental Journalist Name Role Phone Lisa Riggins MD Primary Care Provider [phone] Encounter Details Date Type Department Care Team (Latest Contact Info) Description 03/29/2022 Abstract [facility] CONVERSIONS Dental, Provider, DDS Social History [...] on filedocumented in this encounter Care Teams Environmental Journalist Relationship Specialty Start Date End Date Lisa Riggins MD [address] [place] [id number] PCP - General Family Medicine 06/23/18 03/07/25 documented as of this encounter
--- OUTSIDE RECORDS SUMMARY | 2025-05-16 15:45 | XMS_ITS | Clinical Summary ---
Author Organization [facility] Address [address] [place] [address] Phone Care Team Providers Care Content Management Specialist Name Role Phone Unavailable Primary Care Provider [...] file Medical Devices Not on file [place] [address] PPO BLUE CROSS OUT OF STATE PPO CROSS OUT OF [facility] PPO BLUE CROSS OUT OF STATE PPO BLUE CROSS OUT OF STATE PPO BLUE CROSS OUT OF STATE PPO BLUE CROSS OUT OF STATE PPO BLUE CROSS OUT OF [place] [address] [place] [address] OUT OF STATE PPO Additional Source Comments The information contained in this document represents components of the legal health record. It is not the complete legal health record.[facility]
== END 2025-05-16 12:22 | disposition home or self-care (01) ==
LOC: HO.HMCFM 11:48
PROVIDERS: PCP Nurse Practitioner Family; Visit Provider Nurse Practitioner Family
DX: M54.9 Dorsalgia, unspecified (principal); I10 Essential (primary) hypertension

== ENCOUNTER → 2025-05-16 11:47 | Outpatient (BNVA) | payer OTHER, SELFPAY | PROVIDERS: PCP Nurse Practitioner Family; Visit Provider Nurse Practitioner Family | DX: I10 Essential (primary) hypertension (principal); M54.50 Low back pain, unspecified | CPT/HCPCS: 99212 ==